=== PATIENT | female | born 1990 | race African-American/Black ===

== ENCOUNTER 2016-04-24 21:37 | Emergency (ER) | payer MEDICAID, OTHER ==
[2016-04-24] MEDS ORDERED: IBUPROFEN 600 MG TABLET PO ONE (23:48)
[2016-04-24] MEDS ORDERED: HYDROCODONE/ACETAMINOPHEN 5-325 MG 6 TAB/DSPK PO PRN (23:48)
--- NOTE | 2016-04-24 23:54 | ER Document Report ---
ED Extremity Problem, Lower - General Chief Complaint: Knee Injury Stated Complaint: FALL, LEG PAIN Time seen by provider: 23:49 Mode of Arrival: Stretcher Information source: Patient TRAVEL OUTSIDE OF THE [place] IN LAST 30 DAYS: No - HPI Patient complains to provider of: Injury, Pain, Swelling Location: Knee Occurred: Just prior to arrival Where: Work Onset/Duration: Sudden Quality of pain: Achy Severity: Moderate Pain Level: 4 Context: Fell Recent injury: Yes Associated symptoms: Unable to bear weight Exacerbated by: Movement, Walking Relieved by: Nothing Notes: Patient is a 25-year-old female who presents to the emergency room after fall from a ladder while at work, patient works at [employer], states she was approximately 4 rungs up on the ladder, when she slipped and fell causing her to land on the ground, her only complaint is right knee pain with painful ambulation, she denies a headache or head injury or loss of consciousness, no ankle pain, no low back pain, patient denies being - Related Data Allergies/Adverse Reactions: No Known Allergies Allergy (Verified 07/24/15 15:40) Past Medical History - General Information source: Patient - Social History Smoking Status: Former Smoker Family History: Reviewed & Not Pertinent Patient has suicidal ideation: No Patient has homicidal ideation: No Pulmonary Medical History: Reports: Hx Asthma Denies: Hx Tuberculosis Renal/ Medical History: Denies: Hx Peritoneal Dialysis Past Surgical History: Reports: Hx Section, Hx Hysterectomy - Immunizations Hx Diphtheria, Pertussis, Tetanus Vaccination: Yes Review of Systems - Review of Systems Constitutional: No symptoms reported EENT: No symptoms reported Cardiovascular: No symptoms reported Respiratory: No symptoms reported Gastrointestinal: No symptoms reported Genitourinary: No symptoms reported Female Genitourinary: No symptoms reported Musculoskeletal: See HPI Skin: No symptoms reported Hematologic/Lymphatic: No symptoms reported Neurological/Psychological: No symptoms reported -: Yes All other systems reviewed and negative Physical Exam - Vital signs Vitals: Temp Pulse Resp BP Pulse Ox 98.5 F 110 H 16 108/68 100 04/24/16 21:46 04/24/16 21:46 04/24/16 21:46 04/24/16 21:46 04/24/16 21:46 Interpretation: Normal - Notes Notes: - General General appearance: Appears well, Alert In distress: None - HEENT Head: Normocephalic, Atraumatic Eyes: Normal Conjunctiva: Normal Extraocular movements intact: Yes Eyelashes: Normal Pupils: PERRL - Respiratory Respiratory status: No respiratory distress - Cardiovascular Rhythm: Regular - Abdominal Inspection: Normal, obese - Back Back: Normal - Extremities General upper extremity: Normal inspection General lower extremity: Tenderness to palpate the right knee anteriorly over patella, on lateral joint line and in popliteal space, distal sensation and motor is intact, 2+ DP pulses - Neurological Neuro grossly intact: Yes Orientation: AAOx4 [place] Coma Scale Eye Opening: Spontaneous [place] Coma Scale Verbal: Oriented [place] Coma Scale Motor: Obeys Commands [place] Coma Scale Total: 15 - Psychological Associated symptoms: Normal affect, Normal mood - Skin Skin Temperature: Warm Skin Moisture: Dry Skin Color: Normal Course - Re-evaluation Re-evalutation: 04/24/16 23:53 Patient with no evidence of bony injury on imaging, physical exam findings consistent with likely soft tissue injury, patient was placed in a knee immobilizer, given instructions for follow-up with orthopedics and advised to return if symptoms worsen, patient acknowledges understanding and agreement with this plan - Vital Signs Vital signs: Temp Pulse Resp BP Pulse Ox 98.5 F 110 H 16 108/68 100 04/24/16 21:46 04/24/16 21:46 04/24/16 21:46 04/24/16 21:46 04/24/16 21:46 - Diagnostic Test Radiology reviewed: Image reviewed, Reports reviewed Procedures - Immobilization Right Knee Time completed: 23:54 Pre-Proc Neuro Vasc Exam: Normal Immobilizer type: Knee immobilizer Performed by: PCT Post-Proc Neuro Vasc Exam: Normal Alignment checked and good: Yes Discharge - Discharge Clinical Impression: Right knee injury Qualifiers: Encounter type: initial encounter Qualified Code(s): S89.91XA - Unspecified injury of right lower leg, initial encounter Condition: Stable Disposition: HOME, SELF-CARE Instructions: Use of Crutches ([facility]), Ice & Elevation ([facility]), Knee Immobilizing Splint ([facility]), Suspected Internal Knee Injury ([facility]), Oral Narcotic Medication ( [facility]), Sprained Knee ([facility]) Additional Instructions: Follow up with your primary care provider and an orthopedic surgeon in one to 2 days. Return to the emergency room immediately if symptoms worsen or any additional concerns. Ice and elevate the affected extremity. Limit weightbearing. Prescriptions: Ibuprofen [Motrin 600 Mg Tablet] 600 mg PO TID #30 tablet Forms: Return to Work Referrals: SANG KHAN MD [ACTIVE STAFF] - Follow up as needed
[2016-04-25 00:32] VITALS: BP 103/80
[2016-04-25] MEDS ORDERED: ONDANSETRON 4 MG TAB.RAPDIS SL ONE (01:17)
[2016-04-25] MEDS ORDERED: ONDANSETRON 4 MG TAB.RAPDIS ONE (01:24)
== END 2016-04-25 02:10 | disposition home or self-care (01) ==
LOC: ER 21:37
DX: S89.91XA Unspecified injury of right lower leg, initial encounter (principal); W11.XXXA Fall on and from ladder, initial encounter; Y93.89 Activity, other specified; Y92.511 Restaurant or cafe as the place of occurrence of the external cause; Y99.0 Civilian activity done for income or pay; M25.561 Pain in right knee; J45.909 Unspecified asthma, uncomplicated; Z87.891 Personal history of nicotine dependence
CPT/HCPCS: 99283; 73564; L1830; S0119

== ENCOUNTER 2016-04-29 17:52 | Emergency (ER) | payer OTHER ==
--- NOTE | 2016-04-29 18:07 | ER Document Report ---
ED Medical Screen (RME) - General Stated Complaint: LEG INJURY Time seen by provider: 18:06 Mode of Arrival: Ambulatory Information source: Patient Notes: 25-year-old female presents to ED for pain in her right knee after falling off of a ladder Monday. She states she was first follow-up with orthopedics but she cannot follow-up until she gets her claim number from work. She states the swelling and pain have increased. She has on a knee immobilizer and states she' s been keeping it elevated. She's been taken ibuprofen for the pain. I have greeted and performed a rapid initial assessment of this patient. A comprehensive ED assessment and evaluation of the patient, analysis of test results and completion of medical decision making process will be conducted by an additional ED providers. TRAVEL OUTSIDE OF THE [place] IN LAST 30 DAYS: No - Related Data Allergies/Adverse Reactions: No Known Allergies Allergy (Verified 04/29/16 18:06) Past Medical History Pulmonary Medical History: Reports: Hx Asthma Denies: Hx Tuberculosis Renal/ Medical History: Denies: Hx Peritoneal Dialysis Past Surgical History: Reports: Hx Section, Hx Hysterectomy - Immunizations Hx Diphtheria, Pertussis, Tetanus Vaccination: Yes Physical Exam - Vital signs Vitals: Temp Pulse Resp BP Pulse Ox 98.1 F 77 19 113/97 H 100 04/29/16 18:05 04/29/16 18:05 04/29/16 18:05 04/29/16 18:05 04/29/16 18:05 Course - Vital Signs Vital signs: Temp Pulse Resp BP Pulse Ox 98.1 F 77 19 113/97 H 100 04/29/16 18:05 04/29/16 18:05 04/29/16 18:05 04/29/16 18:05 04/29/16 18:05
[2016-04-29] MEDS ORDERED: IBUPROFEN 800 MG TABLET ONE ×2 (18:17→18:18)
[2016-04-29] MEDS ORDERED: HYDROCODONE/ACETAMINOPHEN 5-325 MG 6 TAB/DSPK PO PRN (20:19)
--- NOTE | 2016-04-29 20:20 | ER Document Report ---
HPI - HPI Patient complains to provider of: right knee pain Pain Level: 4 Context: Patient is a 25 year old emale that comes emergency department for chief complaint of ongoing right knee pain for the past 5 days, she states she was at work when she fell off a ladder and hit her knee on the ground (fell about 4 rungs), states she tried to go back to work today but was unable to do so, states she's been using crutches and wearing her knee immobilizer but was unable to make to orthopedics because she does not have her claim number from work yet. She has been taking ibuprofen. - REPRODUCTIVE Reproductive: DENIES: : - DERM Skin Color: Normal Past Medical History - General Information source: Patient - Social History Smoking Status: Never Smoker Chew tobacco use (# tins/day): No Frequency of alcohol use: None Drug Abuse: None Lives with: Family Family History: Reviewed & Not Pertinent Patient has suicidal ideation: No Patient has homicidal ideation: No Pulmonary Medical History: Reports: Hx Asthma Denies: Hx Tuberculosis Renal/ Medical History: Denies: Hx Peritoneal Dialysis Past Surgical History: Reports: Hx Section, Hx Hysterectomy - Immunizations Hx Diphtheria, Pertussis, Tetanus Vaccination: Yes Vertical Provider Document - CONSTITUTIONAL General Appearance: WD/WN, No Apparent Distress, Obese - INFECTION CONTROL TRAVEL OUTSIDE OF THE [place] IN LAST 30 DAYS: No - HEENT HEENT: Atraumatic, Normal ENT Exam, Normocephalic - RESPIRATORY Respiratory: Breath Sounds Normal, No Respiratory Distress O2 Sat by Pulse Oximetry: 100 - CARDIOVASCULAR Cardiovascular: Regular Rate, Regular Rhythm - GI/ABDOMEN Gastrointestinal: Abdomen Soft, Abdomen Non-Tender - BACK Back: Normal Inspection - MUSCULOSKELETAL/EXTREMETIES Musculoskeletal/Extremeties: Tender - Patient is very mildly tender with palpation over the right knee anteriorly, mainly inferiorly, questionable slight swelling, no erythema, unremarkable leg exam with no evidence of compartment syndrome, normal distal pulses, capillary refill, and sensation. Patient has slightly limited range of motion of the right knee due to discomfort. Normal hip exam. - NEURO Level of Consciousness: Awake, Alert, Appropriate Motor/Sensory: No Motor Deficit, No Sensory Deficit - DERM Integumentary: Warm, Dry, No Rash Course - Re-evaluation Re-evalutation: Patient had negative imaging after the fall, no evidence of compartment syndrome , no severe swelling, no erythema to the area, pain with range of motion and with palpation over the knee generally. Questionable small effusion. Will give patient additional days off work, [place] dose pack to take at night if needed, continue anti-inflammatories and ice, and follow-up and return precautions. Patient states understanding and agreement. - Vital Signs Vital signs: Temp Pulse Resp BP Pulse Ox 98.1 F 77 19 125/82 100 04/29/16 18:05 04/29/16 18:05 04/29/16 18:05 04/29/16 18:11 04/29/16 18:05 Discharge - Discharge Clinical Impression: Right knee pain Qualifiers: Chronicity: acute Qualified Code(s): M25.561 - Pain in right knee Condition: Stable Disposition: HOME, SELF-CARE Additional Instructions: There appears to be still some swelling in your knee, continued ice about 3-4 times a day, continue the anti-inflammatory, elevate her knee when possible, use the knee immobilizer and crutches when getting around. Follow-up with orthopedics referral for additional management. Return to the emergency department for any concerning or worsening symptoms including redness, swelling, severe pain, etc. Forms: Return to Work Referrals: SANG KHAN MD [ACTIVE STAFF] - 05/02/16
[2016-04-29 21:03] VITALS: BP 146/94
== END 2016-04-29 21:03 | disposition home or self-care (01) ==
LOC: ER 17:52
DX: M25.561 Pain in right knee (principal); W11.XXXA Fall on and from ladder, initial encounter; Y99.0 Civilian activity done for income or pay; Z90.710 Acquired absence of both cervix and uterus
CPT/HCPCS: 99283

== ENCOUNTER 2016-07-28 13:00 | Emergency (ER) | payer MEDICAID, OTHER ==
[2016-07-28 13:20] VITALS: BP 136/87
[2016-07-28] MEDS ORDERED: KETOROLAC TROMETHAMINE 60 MG/2 ML SDV IM ONE (14:07)
[2016-07-28] MEDS ORDERED: METOCLOPRAMIDE HCL INJ/PF 10 MG/2 ML SDV IM ONE (14:07)
--- NOTE | 2016-07-28 14:07 | ER Document Report ---
ED Headache - General Mode of Arrival: Ambulatory Information source: Patient TRAVEL OUTSIDE OF THE [place] IN LAST 30 DAYS: No - HPI Patient complains to provider of: Headache Onset: Other - see HPI note - General Chief Complaint: Headache Stated Complaint: RIGHT SIDE HEAD PAIN,NAUSEA,DIZZY Notes: Patient is a 25-year-old female presenting to the emergency department for a right-sided headache. Patient also has numbness to her right arm and right leg. Patient does not have any weakness to extremities, just numbness. Patient 's head is throbbing pain, and came on suddenly last night and has been constant since. Patient states she has history of migraines and was given Fioricet for them. Patient does not recall seeing a neurologist or having a recent CT scan. Patient states her last mammogram was about 6 months ago. Patient denies any injury to her head, blurry vision, or double vision or history of brain aneurysms in her family. Patient has a ride home. Patient states she is prediabetic. (NITHIN NORIEGA) - Related Data Allergies/Adverse Reactions: No Known Allergies Allergy (Verified 07/28/16 13:48) Past Medical History - General Information source: Patient - Social History Smoking Status: Never Smoker Family History: None Patient has suicidal ideation: No Patient has homicidal ideation: No Pulmonary Medical History: Reports: Hx Asthma Neurological Medical History: Reports: Hx Migraine Past Surgical History: Reports: Hx Section, Hx Hysterectomy - Immunizations Hx Diphtheria, Pertussis, Tetanus Vaccination: Yes Review of Systems - Review of Systems Constitutional: No symptoms reported EENT: No symptoms reported Cardiovascular: No symptoms reported Respiratory: No symptoms reported Gastrointestinal: No symptoms reported Genitourinary: No symptoms reported Female Genitourinary: No symptoms reported Musculoskeletal: No symptoms reported Skin: No symptoms reported Hematologic/Lymphatic: No symptoms reported Neurological/Psychological: See HPI, Headaches, Numbness -: Yes All other systems reviewed and negative Physical Exam - Vital signs Interpretation: Normal - General General appearance: Appears well, Alert In distress: Mild - HEENT Head: Normocephalic, Atraumatic Eyes: Normal Pupils: PERRL Mucous membranes: Moist - Respiratory Respiratory status: No respiratory distress Chest status: Nontender Breath sounds: Normal Chest palpation: Normal - Cardiovascular Rhythm: Regular Heart sounds: Normal auscultation Murmur: No - Abdominal Inspection: Normal Distension: No distension Bowel sounds: Normal Tenderness: Nontender Organomegaly: No organomegaly - Back Back: Normal, Nontender - Extremities General upper extremity: Normal inspection, Normal ROM, Normal strength General lower extremity: Normal inspection, Normal ROM, Normal strength - Neurological Neuro grossly intact: Yes Cognition: Normal Orientation: AAOx4 [place] Coma Scale Eye Opening: Spontaneous [place] Coma Scale Verbal: Oriented [place] Coma Scale Motor: Obeys Commands [place] Coma Scale Total: 15 Speech: Normal Motor strength normal: LUE, RUE, LLE, RLE Additional motor 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 She's had a long-standing history of headaches this is exactly same in character quality frequency and duration except that she has a little bit of tingling in her arm or leg. She denies any strokelike symptoms blurred vision double vision numbness tingling weakness. She denies any family history or history of aneurysm and herself. She has any nausea vomiting dull pain diarrhea she is well-appearing nontoxic in no acute distress HEENT examination is normal pupils equal reactive to light bilaterally for range of motion neck no meningeal signs. Equal bilateral reflexes symmetrical no motor or sensory abnormality ambulates without any difficulty with normal neurological examination. Acute CT of the head is negative for acute bleeds mass or midline shift. 07/28/16 15:[address] of the head headache is nearly resolved alert and oriented 3 no acute focal neurological deficits. We'll discharge follow-up with Dr. Mcbride stat urology primary care in 2-3 days and discussed reasons Fredia return sooner (ALEJANDRO EVERETT) - Vital Signs Vital signs: Temp Pulse Resp BP Pulse Ox 98.5 F 65 18 136/87 H 98 07/28/16 13:18 07/28/16 13:18 07/28/16 13:18 07/28/16 13:18 07/28/16 13:18 Discharge - Discharge Clinical Impression: acute cephalgia Condition: Stable Disposition: HOME, SELF-CARE Additional Instructions: Headache The physician does not feel that the headache you are experiencing has a serious underlying cause. Most headaches are due to emotional stress, with resultant muscle tension (tension headache). Occasionally, headaches are secondary to changes in the blood vessels of the scalp (vascular headache and migraine headache). Sometimes, a headache is the first symptom of another developing illness, such as a viral infection. You have no evidence of stroke, bleeding, meningitis, or other serious cause of your headache. The treatment of headaches varies with the severity and cause of the pain. Not all headaches need pain shots. In fact, there is evidence that using narcotics for headaches may make them worse in the long run. The physician will determine the therapy that's in your best interest. If you develop a fever, if the headache is different from any you've previously experienced, or if the headache progressively worsens, then call your physician at once or go to the emergency room. Referrals: ARABELLA CARROLL MD [ACTIVE STAFF] - Follow up in 3-5 days (Call for an appointment to be seen in 3-5 days return for increasing worsening or new symptoms) Scribe Attestation: 07/28/16 15:12 I personally performed the services described in the documentation, reviewed the documentation recorded by the scribe in my presence and it accurately incompletely records my words and actions (ALEJANDRO EVERETT) Scribe Documentation - Scribe Written by Boo:: Nithin Noriega 07/28/16 15:10 acting as scribe for :: Todd
[2016-07-28] MEDS ORDERED: DIPHENHYDRAMINE HCL 50 MG/ML VIAL IM ONE (14:08)
== END 2016-07-28 15:48 | disposition home or self-care (01) ==
LOC: ER 13:00
DX: R51 Headache (principal); R11.0 Nausea; R42 Dizziness and giddiness
CPT/HCPCS: 99284; 96372; 70450; J1200; J1885; J2765

== ENCOUNTER 2017-04-27 18:36 | Emergency (ER) | payer MEDICAID ==
[2017-04-27] MEDS ORDERED: ASPIRIN 81 MG TABLET, CHEWABLE PO ONE (20:27)
--- NOTE | 2017-04-27 20:29 | ER Document Report ---
ED Medical Screen (RME) - General Chief Complaint: Chest Pain Stated Complaint: LEG PAIN Time Seen by Provider: 04/27/17 20:26 Mode of Arrival: Ambulatory Information source: Patient Notes: Patient presents complaining of right lower extremity pain that she points to her right hip. Patient states that whenever she stands or walks she feels as though her leg is going to give out. Patient additionally reports midsternal chest pain for the past 2-3 days that has been constant. Patient does report shortness of breath. Patient denies any cough. Patient does report nausea but denies any vomiting. hx: Asthma, hysterectomy, I have greeted and performed a rapid initial assessment of this patient. A comprehensive ED assessment and evaluation of the patient, analysis of test results and completion of the medical decision making process will be conducted by additional ED providers. TRAVEL OUTSIDE OF THE [place] IN LAST 30 DAYS: No - Related Data Allergies/Adverse Reactions: No Known Allergies Allergy (Verified 07/28/16 13:48) Past Medical History - Social History Frequency of alcohol use: None Drug Abuse: None Pulmonary Medical History: Reports: Hx Asthma Denies: Hx Tuberculosis Neurological Medical History: Reports: Hx Migraine Renal/ Medical History: Denies: Hx Peritoneal Dialysis Past Surgical History: Reports: Hx Section, Hx Hysterectomy - Immunizations Hx Diphtheria, Pertussis, Tetanus Vaccination: Yes Physical Exam - Vital signs Vitals: Temp Pulse Resp BP Pulse Ox 98.4 F 79 16 120/85 100 04/27/17 20:11 04/27/17 20:11 04/27/17 20:11 04/27/17 20:11 04/27/17 20:11 - Respiratory Respiratory status: No respiratory distress Chest status: Tender Breath sounds: Normal Chest palpation: Tender Course - Vital Signs Vital signs: Temp Pulse Resp BP Pulse Ox 98.4 F 79 16 120/85 100 04/27/17 20:11 04/27/17 20:11 04/27/17 20:11 04/27/17 20:11 04/27/17 20:11
--- NOTE | 2017-04-27 21:38 | RADIOLOGY REPORT (SQ) ---
EXAM DESCRIPTION: CHEST PA/LAT COMPLETED DATE/TIME: 04/27/2017 8:51 pm REASON FOR STUDY: cp COMPARISON: 07/24/2015 EXAM PARAMETERS: NUMBER OF VIEWS: two views TECHNIQUE: Digital Frontal and Lateral radiographic views of the chest acquired. RADIATION DOSE: NA LIMITATIONS: none FINDINGS: LUNGS AND PLEURA: No opacities, masses or pneumothorax. No pleural effusion. MEDIASTINUM AND HILAR STRUCTURES: No masses or contour abnormalities. HEART AND VASCULAR STRUCTURES: Heart normal size. No evidence for failure. BONES: No acute findings. HARDWARE: None in the chest. OTHER: No other significant finding. IMPRESSION: No acute findings. TECHNICAL DOCUMENTATION: JOB ID: [id number] [id number] 2010 [employer]- All Rights Reserved
--- NOTE | 2017-04-27 21:40 | RADIOLOGY REPORT (SQ) ---
EXAM DESCRIPTION: HIP RIGHT AP/LATERAL COMPLETED DATE/TIME: 04/27/2017 8:51 pm REASON FOR STUDY: r hip pain COMPARISON: None. NUMBER OF VIEWS: Two views. TECHNIQUE: AP pelvis and additional frog-leg view of the right hip. LIMITATIONS: None. FINDINGS: MINERALIZATION: Normal. RIGHT HIP: No fracture or dislocation. No worrisome bone lesions. LEFT HIP: No fracture or dislocation. No worrisome bone lesions. PUBIS AND ISCHIUM: No fracture. PELVIS: No fracture. SACRUM: No fracture or dislocation. No worrisome bone lesions. LOWER LUMBAR SPINE: No fracture or dislocation. No worrisome bone lesions. No significant disc disea se. SOFT TISSUES: No findings. OTHER: No other significant finding. IMPRESSION: NO RADIOGRAPHIC EVIDENCE OF ACUTE INJURY. TECHNICAL DOCUMENTATION: JOB ID: [id number] 2010 [employer]- All Rights Reserved
--- NOTE | 2017-04-27 22:21 | ER Document Report ---
ED Cardiac - General Mode of Arrival: Ambulatory Information source: Patient TRAVEL OUTSIDE OF THE [place] IN LAST 30 DAYS: No - HPI Patient complains to provider of: Chest pain, Shortness of breath Quality of pain: Constant, Sharp, Stabbing Associated symptoms: Other - see notes above <FCO ZHANG - Last Filed: 04/28/17 03:54> <ELOISA CORTÉS - Last Filed: 04/28/17 03:57> - General Chief Complaint: Chest Pain Stated Complaint: LEG PAIN Time Seen by Provider: 04/27/17 20:26 Notes: 26 year old female with history of asthma presents to the ED complaining of constant stabbing chest pain that started 2-3 days ago. Patient reports that she feels short of breath unlike her normal asthma, and her inhaler has not helped. Patient additionally complains of right hip, leg and foot pain that started today. Patient is experiencing weakness to her right lower extremity and states that it 'gives out' after standing or walking on it. Patient also reports right foot numbness. Denies cough, fever, wheezing, injury to her back, and urinary or bowel incontinence. (FCO ZHANG) - Related Data Allergies/Adverse Reactions: No Known Allergies Allergy (Verified 07/28/16 13:48) Past Medical History - General Information source: Patient - Social History Smoking Status: Never Smoker Frequency of alcohol use: None Drug Abuse: None Family History: None Patient has suicidal ideation: No Patient has homicidal ideation: No Pulmonary Medical History: Reports: Hx Asthma Denies: Hx Tuberculosis Neurological Medical History: Reports: Hx Migraine Renal/ Medical History: Denies: Hx Peritoneal Dialysis Past Surgical History: Reports: Hx Section, Hx Hysterectomy - Immunizations Hx Diphtheria, Pertussis, Tetanus Vaccination: Yes <FCO ZHANG - Last Filed: 04/28/17 03:54> Review of Systems - Review of Systems Constitutional: No symptoms reported. denies: Fever EENT: No symptoms reported Cardiovascular: See HPI, Chest pain Respiratory: See HPI, Short of breath. denies: Cough, Wheezing Gastrointestinal: No symptoms reported. denies: Fecal incontinence Genitourinary: No symptoms reported. denies: Incontinence Female Genitourinary: No symptoms reported Musculoskeletal: See HPI, Other - right hip, leg, and foot pain Skin: No symptoms reported Hematologic/Lymphatic: No symptoms reported Neurological/Psychological: See HPI, Weakness - right lower extremity, Numbness - right foot -: Yes All other systems reviewed and negative <FCO ZHANG - Last Filed: 04/28/17 03:54> Physical Exam <FCO ZHANG - Last Filed: 04/28/17 03:54> <ELOISA CORTÉS - Last Filed: 04/28/17 03:57> - Vital signs Vitals: Temp Pulse Resp BP Pulse Ox 98.4 F 79 16 120/85 100 04/27/17 20:11 04/27/17 20:11 04/27/17 20:11 04/27/17 20:11 04/27/17 20:11 - Notes Notes: GENERAL: Alert, interacts well. No acute distress. HEAD: Normocephalic, atraumatic. EYES: Pupils equal, round, and reactive to light. Extraocular movements intact. ENT: Oral mucosa moist, tongue midline. NECK: Full range of motion. Supple. Trachea midline. LUNGS: Clear to auscultation bilaterally, no wheezes, rales, or rhonchi. No respiratory distress. HEART: Tachycardic with regular rhythm. No murmurs, gallops, or rubs. BACK: No midline bony tenderness to palpation. CHEST: Reproducible tenderness to palpation of the sternum. ABDOMEN: Soft, non-tender. Non-distended. Bowel sounds present in all 4 quadrants. EXTREMITIES: Moves all 4 extremities spontaneously. No edema, radial and dorsalis pedis pulses 2/4 bilaterally. No cyanosis. Negative right SLR. NEUROLOGICAL: Alert and oriented x3. Normal speech. Normal dorsi and plantar flexion of bilateral feet. 5/5 great toe raise strength. No saddle anesthesia. PSYCH: Normal affect, normal mood. SKIN: Warm, dry, normal turgor. No rashes or lesions noted. (FCO ZHANG) Course - Laboratory Result Diagrams: 04/27/17 22:59 04/27/17 22:59 <FCO ZHANG - Last Filed: 04/28/17 03:54> - Laboratory Result Diagrams: 04/27/17 22:59 04/27/17 22:59 <ELOISA CORTÉS - Last Filed: 04/28/17 03:57> - Re-evaluation Re-evalutation: 04/28/17 00:07 CBC shows mild anemia with hemoglobin 11.3, d-dimer unremarkable 0.27, chemistries unremarkable, cardiac enzymes negative, chest x-ray unremarkable, hip and pelvis x-ray negative. Straight leg raising test negative although she does have some suspicion for possible sciatica. No evidence of cauda equina syndrome, no red flag symptoms. Physical examination consistent with costochondritis. Patient will be discharged home on NSAIDs and steroids which will benefit both the costochondritis and the sciatica. Discharged home. ( ELOISA CORTÉS) - Vital Signs Vital signs: Temp Pulse Resp BP Pulse Ox 98.3 F 85 14 130/80 H 99 04/28/17 00:00 04/28/17 00:00 04/28/17 00:00 04/28/17 00:00 04/28/17 00:00 - Laboratory Laboratory results interpreted by me: 04/27/17 04/27/17 22:59 22:59 Hgb 11.3 L Hct 34.0 L Creatine Kinase 182 H - EKG Interpretation by Me Additional EKG results interpreted by me: 04/28/17 00:07 EKG shows sinus rhythm at a rate of 83, normal axis, normal intervals, no ST segment elevations or depressions, isolated T-wave inversions in lead III per my interpretation. (ELOISA CORTÉS) Discharge <FCO ZHANG - Last Filed: 04/28/17 03:54> <ELOISA CORTÉS - Last Filed: 04/28/17 03:57> - Discharge Clinical Impression: Costochondritis, Pre-hypertension, Right sided sciatica Condition: Stable Disposition: HOME, SELF-CARE Additional Instructions: Costochondritis Your chest pain is coming from the rib cartilages in the chest wall. This is often caused by subtle straining of the ribs near the breastbone. The strain can occur from a mild injury, coughing or sneezing with a "cold," vigorous vomiting, or even from rib compression while sleeping. Often the pain doesn't begin until a couple of days after the strain. Persons with arthritis are especially prone to this type of pain, due to inflammation of the cartilage joints near the breast bone. But often, there is no clear reason why it happens. Rest from strenuous physical activity. This kind of chest pain is usually made worse by movement of the chest. Depending on the symptoms, we may prescribe medicine for pain and inflammation. Apply gentle warmth to the painful area for 15 minutes every hour or two. You should call contact the doctor immediately if things change. Further evaluation is needed if you develop a fever or cough, if the nature of the pain changes, or if you become short of breath. Sciatica Your symptoms suggest "sciatica." The pain of sciatica typically radiates down the leg. Numbness in the foot or calf may also occur. Sciatica is caused by irritation of the sciatic nerve or its branches. The irritation can be due to a herniated disk in the spine, swelling and inflammation in the muscles surrounding the sciatic nerve, or direct injury of the nerve itself. Most cases of sciatica will resolve with medical treatment. Bed rest is usually recommended initially. Surgery is only necessary when the condition will not improve with rest and antiinflammatory medication. Re-examination is necessary if you develop increasing numbness, localized weakness in the foot or ankle, or if the pain does not respond to rest. Prescriptions: Ibuprofen 800 mg PO TIDP #20 tablet Prednisone [Deltasone 20 mg Tablet] 3 tab PO DAILY 5 Days tablet Forms: Elevated Blood Pressure, Return to Work Referrals: ARNALDO RIVERO MD [Primary Care Provider] - Follow up in 1 week Scribe Attestation: 04/28/17 03:57 I personally performed the services described in the documentation, reviewed and edited the documentation which was dictated to the scribe in my presence, and it accurately records my words and actions. (ELOISA CORTÉS) Scribe Documentation - Scribe Written by Boo:: Boo Aguiar, 04/27/2017 2240 acting as scribe for :: Lety <FCO ZHANG - Last Filed: 04/28/17 03:54>
[2017-04-27 23:09] LABS: ABSOLUTE BASOPHILS # (AUTO) 0.1 10^3/uL (0.0-0.2); ABSOLUTE EOSINOPHILS # (AUTO) 0.2 10^3/uL (0.0-0.6); ABSOLUTE LYMPHOCYTES (AUTO) 3.8 10^3/uL (0.5-4.7); ABSOLUTE MONOCYTES (AUTO) 0.9 10^3/uL (0.1-1.4); ABSOLUTE NEUT (AUTO) 4.4 10^3/uL (1.7-8.2); BASOPHILS % (AUTO) 1.4 % (0-2); EOSINOPHILS % (AUTO) 2.2 % (0-6); HEMOGLOBIN 11.3 g/dL (12.0-15.5); LYMPHOCYTES % (AUTO) 40.2 % (13-45); MEAN CORPUSCULAR HEMOGLOBIN 27.6 pg (27.0-33.4); MEAN CORPUSCULAR HGB CONC 33.2 g/dL (32.0-36.0); MEAN CORPUSCULAR VOLUME 83 fl (80-97); MONOCYTES % (AUTO) 9.6 % (3-13); PLATELET COUNT 412 10^3/uL (150-450); RED BLOOD COUNT 4.08 10^6/uL (3.72-5.28); RED CELL DISTRIBUTION WIDTH 12.8 % (11.5-14.0); SEGMENTED NEUTROPHILS % (AUTO) 46.6 % (42-78); TOTAL CELLS COUNTED % (AUTO) 100 %; WHITE BLOOD COUNT 9.5 10^3/uL (4.0-10.5)
[2017-04-27 23:32] LABS: ALANINE AMINOTRANSFERASE 26 U/L (9-52); ALBUMIN 4.1 g/dL (3.5-5.0); ALKALINE PHOSPHATASE 73 U/L (38-126); ANION GAP 9 (5-19); ASPARTATE AMINO TRANSFERASE 16 U/L (14-36); BILIRUBIN,DIRECT 0.2 mg/dL (0.0-0.4); BILIRUBIN,TOTAL 0.3 mg/dL (0.2-1.3); BLOOD UREA NITROGEN 8 mg/dL (7-20); CALCIUM 9.7 mg/dL (8.4-10.2); CARBON DIOXIDE 27 mmol/L (22-30); CHLORIDE 102 mmol/L (98-107); CREATINE KINASE 182 U/L (30-135); GLUCOSE 108 mg/dL (75-110); POTASSIUM 4.2 mmol/L (3.6-5.0); SODIUM 137.5 mmol/L (137-145)
[2017-04-27 23:39] LABS: CREATINE KINASE MB 0.39 ng/mL (<4.55); TROPONIN I 0.013 ng/mL
[2017-04-28] MEDS ORDERED: KETOROLAC TROMETHAMINE 60 MG/2 ML SDV IM ONE (00:09)
[2017-04-28 00:30] VITALS: BP 130/80
--- NOTE | 2017-04-28 07:42 | EKG REPORT ---
SEVERITY:- BORDERLINE ECG - SINUS RHYTHM BORDERLINE T ABNORMALITIES, ANTERIOR LEADS : Confirmed by: Cristy Corona MD 28-Apr-2017 07:40:50
== END 2017-04-28 00:30 | disposition home or self-care (01) ==
LOC: ER 18:36
DX: M94.0 Chondrocostal junction syndrome [Tietze] (principal); R03.0 Elevated blood-pressure reading, without diagnosis of hypertension; M54.31 Sciatica, right side; R53.1 Weakness; R06.02 Shortness of breath; R20.0 Anesthesia of skin
CPT/HCPCS: 93005; 99285; 96372; 36415; 82553; 82550; 85025; 80053; 84484; 85379; 71046; 73502; 93010; J1885

== ENCOUNTER 2017-05-04 13:29 | Emergency (ER) | payer MEDICAID ==
[2017-05-04] MEDS ORDERED: ASPIRIN 81 MG TABLET, CHEWABLE PO ONE (14:25)
[2017-05-04] MEDS ORDERED: HYDROXYZINE PAMOATE 50 MG CAPSULE PO ONE (14:25)
[2017-05-04] MEDS ORDERED: NORMAL SALINE 1000 ML 1,000 ML IV ONE (14:25)
--- NOTE | 2017-05-04 14:29 | ER Document Report ---
ED General - General Mode of Arrival: Ambulatory Information source: Patient TRAVEL OUTSIDE OF THE [place] IN LAST 30 DAYS: No - HPI Onset: Last week Onset/Duration: Persistent Quality of pain: Sharp, Other - Pulling Pain Level: 4 Associated symptoms: Chest pain, Shortness of breath. denies: Nonproductive cough, Productive cough, Fever, Headache, Nausea, Vomiting Exacerbated by: Denies Relieved by: Denies Similar symptoms previously: No Recently seen / treated by doctor: Yes <JENNI DUMAS - Last Filed: 05/04/17 20:48> <MORRO PAULSON - Last Filed: 05/04/17 22:03> - General Chief Complaint: Shortness Of Breath Stated Complaint: WEAKNESS, DIFFICULTY BREATHING Time Seen by Provider: 05/04/17 14:06 Notes: Patient presents with a one-week history of anterior chest pain, shortness of breath and feeling weak. Yesterday she states she started to have some dizziness. Patient denies any cough, cold symptoms, nausea vomiting or diarrhea. Patient denies any urinary symptoms. Patient states she has a maternal family history of congestive heart failure and cardiomyopathy which has her concerned about her symptoms today. 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 denies: Fever, Recent illness EENT: No symptoms reported Cardiovascular: Chest pain, Dizziness. denies: Lightheaded Respiratory: Short of breath. denies: Cough, Hemoptysis, Wheezing Gastrointestinal: No symptoms reported. denies: Abdominal pain, Nausea, Vomiting Genitourinary: No symptoms reported Female Genitourinary: No symptoms reported Musculoskeletal: No symptoms reported. denies: Back pain Skin: No symptoms reported Hematologic/Lymphatic: No symptoms reported Neurological/Psychological: No symptoms reported. denies: Headaches <JENNI DUMAS - Last Filed: 05/04/17 20:48> Physical Exam - General General appearance: Appears well, Alert, Anxious In distress: None - HEENT Head: Normocephalic, Atraumatic Eyes: Normal Conjunctiva: Normal Extraocular movements intact: Yes Ears: Normal External canal: Normal Nasal: Normal Mouth/Lips: Normal Mucous membranes: Normal Pharynx: Normal. No: Erythema, Exudate, Tonsillar hypertrophy Neck: Normal, Supple. No: Lymphadenopathy - Respiratory Respiratory status: No respiratory distress Chest status: Tender Breath sounds: Normal Chest palpation: Tender. No: Subcutaneous emphysema, Sucking chest wound - Cardiovascular Rhythm: Regular Heart sounds: S1 appreciated, S2 appreciated Murmur: No - Abdominal Inspection: Morbidly Obese Distension: No distension Bowel sounds: Normal Tenderness: Nontender - Back Back: Normal, Nontender. No: CVA tenderness, Vertebra tenderness - Extremities General upper extremity: Normal inspection, Normal ROM General lower extremity: Normal inspection, Nontender, Normal ROM - Neurological Neuro grossly intact: Yes Cognition: Normal [place] Coma Scale Eye Opening: Spontaneous [place] Coma Scale Verbal: Oriented [place] Coma Scale Motor: Obeys Commands [place] Coma Scale Total: 15 - Psychological Associated symptoms: Anxious - Skin Skin Temperature: Warm Skin Moisture: Dry Skin Color: Normal <JENNI DUMAS - Last Filed: 05/04/17 20:48> - Vital signs Vitals: Temp Pulse Resp BP Pulse Ox 98.5 F 78 16 101/82 100 05/04/17 13:53 05/04/17 13:53 05/04/17 13:53 05/04/17 13:53 05/04/17 13:53 Course - Laboratory Result Diagrams: 05/04/17 17:27 05/04/17 16:50 - Diagnostic Test Radiology reviewed: Reports reviewed - EKG Interpretation by Me EKG shows normal: Sinus rhythm When compared to previous EKG there are: Changes noted - Patient with increase QTC to 47 today, patient with T-wave inversion in V 2,3,4 <JENNI DUMAS - Last Filed: 05/04/17 20:48> - Laboratory Result Diagrams: 05/04/17 17:27 05/04/17 16:50 - Diagnostic Test Radiology reviewed: Reports reviewed <MORRO PAULSON - Last Filed: 05/04/17 22:03> - Re-evaluation Re-evalutation: 05/04/17 17:42 Patient states that she feels as though her chest pain has worsened. Patient continues with reproducible anterior chest wall tenderness with palpation. No dyspnea at this time. Respirations unlabored. Repeat EKG ordered. 05/04/17 18:[address] Hernandes regarding patient presentation, reviewed patient's EKG as well as diagnostic test results. Dr. Hernandes turned about T-wave inversion in V2, 3 and 4 which is new as compared to her EKG performed last week. Also concerned about increasing prolongation of QTC. Recommends consultation with cardiology. Consulted with Dr. Damon regarding patient presentation, discussed her diagnostic evaluation, presentation, history and EKG findings. Recommends obtaining CTA and repeating a troponin at 8 PM if tests are negative patient can be discharged home to follow-up in the office tomorrow for further evaluation with him. 05/04/17 20:23 Dr. Hernandes inserted right external jugular IV. Line flushed without difficulty. CT states that they cannot use patient's left AC and will not use an EJ for CTA. Dr Hernandes spoke with formula technician. Order changed to VQ study. 05/04/17 20:27 sterile supervisor recommends calling radiology so they may call in nuclear med refrigeration technician for VQ study. 05/04/17 20:48 Bedside report and handout given to Saida Paulson (JENNI DUMAS) 05/04/17 22:02 VQ scan normal, repeat troponin negative, patient was given results of VQ scan and troponin and given a written report of VQ scan and all labs to follow-up with the automotive electrician helper tomorrow. All IV access will be DC'd and patient will be discharged home with prescription of Prilosec and Carafate. Patient is aware of discharge plans. (MORRO PAULSON) - Vital Signs Vital signs: Temp Pulse Resp BP Pulse Ox 98.1 F 79 18 114/66 99 05/04/17 17:42 05/04/17 17:42 05/04/17 17:42 05/04/17 17:42 05/04/17 17:42 - Laboratory Laboratory results interpreted by me: 05/04/17 05/04/17 05/04/17 15:30 16:50 17:27 Hgb 11.3 L Hct 33.0 L BUN 6 L Creatine Kinase 146 H Ur Leukocyte Esterase TRACE H Discharge <JENNI DUMAS - Last Filed: 05/04/17 20:48> <MORRO PAULSON - Last Filed: 05/04/17 22:03> - Discharge Clinical Impression: Chest pain Qualifiers: Chest pain type: unspecified Qualified Code(s): R07.9 - Chest pain, unspecified GERD (gastroesophageal reflux disease) Qualifiers: Esophagitis presence: without esophagitis Qualified Code(s): K21.9 - Gastro- esophageal reflux disease without esophagitis Instructions: Chest Pain of Unclear Cause ([facility]), Reflux Disease (GERD) ([facility]) Additional Instructions: Return immediately for any new or worsening symptoms Followup with your primary care provider, call tomorrow to make a followup appointment Follow-up with Dr. Damon in his office tomorrow. Call their office at 8 AM for an appointment time. Let the office staff know that he wanted to see you in the office tomorrow for examination Prescriptions: Omeprazole Magnesium [Prilosec Otc] 20 mg PO DAILY #15 tablet. Sucralfate [Carafate 1 gm Tablet] 1 gm PO QID #40 tablet Forms: Return to Work Referrals: KAROLINE DAMON MD [ACTIVE STAFF] - Follow up tomorrow WILBER RICKETTS DO [NO LOCAL MD] - 05/08/17
--- NOTE | 2017-05-04 15:34 | RADIOLOGY REPORT (SQ) ---
EXAM DESCRIPTION: CHEST PA/LAT COMPLETED DATE/TIME: 05/04/2017 3:24 pm REASON FOR STUDY: cp COMPARISON: 04/27/2017. EXAM PARAMETERS: NUMBER OF VIEWS: two views TECHNIQUE: Digital Frontal and Lateral radiographic views of the chest acquired. RADIATION DOSE: NA LIMITATIONS: none FINDINGS: LUNGS AND PLEURA: No opacities, masses or pneumothorax. No pleural effusion. MEDIASTINUM AND HILAR STRUCTURES: No masses or contour abnormalities. HEART AND VASCULAR STRUCTURES: Heart normal size. No evidence for failure. BONES: No acute findings. HARDWARE: None in the chest. OTHER: No other significant finding. IMPRESSION: NO SIGNIFICANT RADIOGRAPHIC FINDING IN THE CHEST. TECHNICAL DOCUMENTATION: JOB ID: [id number] [employer]- All Rights Reserved
[2017-05-04 15:46] LABS: APPEARANCE,URINE SLIGHTLY-CLOUDY; BILIRUBIN,URINE NEGATIVE (NEGATIVE); COLOR,URINE YELLOW; GLUCOSE, URINE NEGATIVE (NEGATIVE); KETONES,URINE NEGATIVE (NEGATIVE); LEUKOCYTE ESTERASE,URINE TRACE (NEGATIVE); NITRITE,URINE NEGATIVE (NEGATIVE); PROTEIN,URINE NEGATIVE (NEGATIVE); URINE SPECIFIC GRAVITY 1.025; UROBILINOGEN,URINE NEGATIVE mg/dL (<2.0)
[2017-05-04 17:18] LABS: ALANINE AMINOTRANSFERASE 25 U/L (9-52); ALBUMIN 3.9 g/dL (3.5-5.0); ALKALINE PHOSPHATASE 62 U/L (38-126); ANION GAP 9 (5-19); ASPARTATE AMINO TRANSFERASE 16 U/L (14-36); BILIRUBIN,DIRECT 0.3 mg/dL (0.0-0.4); BILIRUBIN,TOTAL 0.3 mg/dL (0.2-1.3); BLOOD UREA NITROGEN 6 mg/dL (7-20); CALCIUM 9.7 mg/dL (8.4-10.2); CARBON DIOXIDE 23 mmol/L (22-30); CHLORIDE 107 mmol/L (98-107); CREATINE KINASE 146 U/L (30-135); GLUCOSE 79 mg/dL (75-110); LIPASE 49.3 U/L (23-300); MAGNESIUM 1.9 mg/dL (1.6-2.3); POTASSIUM 4.1 mmol/L (3.6-5.0); SODIUM 139.1 mmol/L (137-145); TOTAL PROTEIN 6.9 g/dL (6.3-8.2)
[2017-05-04 17:44] VITALS: BP 114/66
[2017-05-04 17:51] LABS: ABSOLUTE BASOPHILS # (AUTO) 0.1 10^3/uL (0.0-0.2); ABSOLUTE EOSINOPHILS # (AUTO) 0.1 10^3/uL (0.0-0.6); ABSOLUTE LYMPHOCYTES (AUTO) 3.2 10^3/uL (0.5-4.7); ABSOLUTE MONOCYTES (AUTO) 0.7 10^3/uL (0.1-1.4); ABSOLUTE NEUT (AUTO) 3.3 10^3/uL (1.7-8.2); BASOPHILS % (AUTO) 0.8 % (0-2); HEMOGLOBIN 11.3 g/dL (12.0-15.5); LYMPHOCYTES % (AUTO) 43.4 % (13-45); MEAN CORPUSCULAR HEMOGLOBIN 28.4 pg (27.0-33.4); MEAN CORPUSCULAR HGB CONC 34.1 g/dL (32.0-36.0); MEAN CORPUSCULAR VOLUME 83 fl (80-97); MONOCYTES % (AUTO) 9.8 % (3-13); PLATELET COUNT 415 10^3/uL (150-450); RED BLOOD COUNT 3.97 10^6/uL (3.72-5.28); TOTAL CELLS COUNTED % (AUTO) 100 %; WHITE BLOOD COUNT 7.4 10^3/uL (4.0-10.5)
[2017-05-04 18:27] LABS: CREATINE KINASE MB < 0.22 ng/mL (<4.55); TROPONIN I < 0.012 ng/mL
--- NOTE | 2017-05-04 18:55 | EKG REPORT ---
SEVERITY:- BORDERLINE ECG - SINUS RHYTHM BORDERLINE T ABNORMALITIES, DIFFUSE LEADS BORDERLINE PROLONGED QT INTERVAL : Confirmed by: Shorty Chiu MD 04-May-2017 18:55:11
--- NOTE | 2017-05-04 18:57 | EKG REPORT ---
SEVERITY:- BORDERLINE ECG - SINUS RHYTHM BORDERLINE T ABNORMALITIES, DIFFUSE LEADS BORDERLINE PROLONGED QT INTERVAL : Confirmed by: Shorty Chiu MD 04-May-2017 18:55:35
[2017-05-04] MEDS ORDERED: HYDROCODONE/ACETAMINOPHEN 5-325 MG TABLET PO ONE (20:49)
--- NOTE | 2017-05-04 21:29 | RADIOLOGY REPORT (SQ) ---
EXAM DESCRIPTION: NM LUNG PERFUSION SCAN COMPLETED DATE/TIME: 05/04/2017 9:22 pm REASON FOR STUDY: cp COMPARISON: Chest x-ray dated 05/04/2017. RADIONUCLIDE AND DOSE: 5.15 millicuries TC-99m MAA The route of agent administration: Intravenous TECHNIQUE: Eight views of the lungs acquired following injection of MAA. LIMITATIONS: None. FINDINGS: PERFUSION: Perfusion images with normal homogenous activity and no wedge-shaped or segment al defects. OTHER: No other significant finding. IMPRESSION: NORMAL PERFUSION LUNG SCAN. TECHNICAL DOCUMENTATION: JOB ID: [id number] [email or web address]- All Rights Reserved
== END 2017-05-04 22:30 | disposition home or self-care (01) ==
LOC: ER 13:29
DX: R07.9 Chest pain, unspecified (principal); K21.9 Gastro-esophageal reflux disease without esophagitis; R06.02 Shortness of breath; R53.1 Weakness; Z90.710 Acquired absence of both cervix and uterus
CPT/HCPCS: 93005; 99285; 96360; 36415; 82553; 82550; 83690; 83735; 85025; 80053; 81001; 84484; 85379; 71046; 78580; 93010; A9540; J3490; J7030; Q9969

== ENCOUNTER 2017-05-19 18:18 | Emergency (ER) | payer MEDICAID ==
[2017-05-19] MEDS ORDERED: DEXAMETHASONE 4 MG TABLET PO ONE (21:21)
[2017-05-19] MEDS ORDERED: LIDOCAINE 5% (700 MG) TRANSDERMAL ADH..PATCH TP ONE (21:21)
--- NOTE | 2017-05-19 21:24 | ER Document Report ---
ED General - General Chief Complaint: Neck Problem Stated Complaint: NECK ISSUE Time Seen by Provider: 05/19/17 21:01 Notes: Patient is a 26-year-old female presents with 1 week of sore throat 2-3 days of a "lump" on her low neck. Patient describes the area as an area of swelling with a dull, constant, aching pain. She notes that touching the area or moving worsens the pain. She has not tried anything to improve the pain. She denies any history of similar symptoms in the past. She has not seen her primary doctor regarding today's concerns. She denies any associated fever, vomiting, focal weakness, numbness, headache or altered mental status. TRAVEL OUTSIDE OF THE [place] IN LAST 30 DAYS: No - Related Data Allergies/Adverse Reactions: No Known Allergies Allergy (Verified 05/19/17 18:20) Past Medical History - General Information source: Patient - Social History Smoking Status: Never Smoker Chew tobacco use (# tins/day): No Frequency of alcohol use: None Drug Abuse: None Lives with: Family Family History: Reviewed & Not Pertinent Patient has suicidal ideation: No Patient has homicidal ideation: No Pulmonary Medical History: Reports: Hx Asthma, Hx Bronchitis Denies: Hx Tuberculosis Neurological Medical History: Reports: Hx Migraine Renal/ Medical History: Denies: Hx Peritoneal Dialysis Past Surgical History: Reports: Hx Section, Hx Hysterectomy - Immunizations Hx Diphtheria, Pertussis, Tetanus Vaccination: Yes Review of Systems - Review of Systems Notes: Constitutional: Negative for fever. HENT: Positive for sore throat. Eyes: Negative for visual changes. Cardiovascular: Negative for chest pain. Respiratory: Negative for shortness of breath. Gastrointestinal: Negative for abdominal pain, vomiting or diarrhea. Genitourinary: Negative for dysuria. Musculoskeletal: Positive for neck pain Skin: Negative for rash. Neurological: Negative for headaches, weakness or numbness. 10 point ROS negative except as marked above and in HPI. Physical Exam - Vital signs Vitals: Temp Pulse BP Pulse Ox 98.9 F 100 111/70 98 05/19/17 18:35 05/19/17 18:35 05/19/17 18:35 05/19/17 18:35 Interpretation: Normal Notes: PHYSICAL EXAMINATION: GENERAL: Well-appearing, well-nourished and in no acute distress. HEAD: Atraumatic, normocephalic. EYES: Pupils equal round and reactive to light, extraocular movements intact, sclera anicteric, conjunctiva are normal. ENT: nares patent, oropharynx clear without exudates. Moist mucous membranes. NECK: Normal range of motion, bilateral anterior cervical lymphadenopathy that is mildly tender to palpation, easily mobile. There is a 2 x 2 centimeter area of swelling to the base of the posterior neck just above the C7 region. Mass is without fluctuance, firmness and mobility. LUNGS: Breath sounds clear to auscultation bilaterally and equal. No wheezes rales or rhonchi. HEART: Regular rate and rhythm without murmurs ABDOMEN: Soft, nontender, normoactive bowel sounds. No guarding, no rebound. No masses appreciated. EXTREMITIES: Normal range of motion, no pitting or edema. No cyanosis. NEUROLOGICAL: No focal neurological deficits. Moves all extremities spontaneously and on command. PSYCH: Normal mood, normal affect. SKIN: Warm, Dry, normal turgor, no rashes or lesions noted. Course - Re-evaluation Re-evalutation: 05/19/17 21:22 Patient presents with what appears to be a muscle spasm of her upper mid back. There is no fluctuance, apparent fluid collection, or spinal step-offs or deformities to suggest localized abscess, cyst, or acute spinal injury. Patient does also report a sore throat. Centor criteria 0 and I do not clinically suspect strep pharyngitis. History and exam are not consistent with a retropharyngeal abscess or peritonsillar abscess. Airway is patent. No difficulty handling oral secretions. Vitals within normal limits. Patient was treated with a dose of dexamethasone and advised on symptomatic care. Suspect likely viral pharyngitis. At this time will discharge with return precautions and follow-up recommendations. Verbal discharge instructions given a the bedside and opportunity for questions given. Medication warnings reviewed. Patient is in agreement with this plan and has verbalized understanding of return precautions and the need for primary care follow-up in the next 24-72 hours. - Vital Signs Vital signs: Temp Pulse Resp BP Pulse Ox 99 F 93 18 136/90 H 96 05/19/17 22:54 05/19/17 22:54 05/19/17 22:54 05/19/17 22:54 05/19/17 22:54 Discharge - Discharge Clinical Impression: Mid back pain, Muscle spasm, Viral pharyngitis Condition: Good Disposition: HOME, SELF-CARE Additional Instructions: The swelling and pain in her neck appears to be related to muscle spasm. Apply heat to the area regularly. In regards to your sore throat: Your symptoms are likely due to an viral infection and will resolve in the next 1-2 weeks. You have also been given a dose of steroids to help with your throat discomfort. Please continue to take ibuprofen 600 mg every 6 hours or Tylenol 1000 mg every 6 hours as needed for throat discomfort. You can also gargle with salt water. Continue to drink plenty of fluids. Follow-up with your primary care doctor in the next several days. Return if you become unable to swallow, have difficulty breathing, pass out, have persistent vomiting that prevents you from being able to tolerate fluids, or have any other symptoms that are concerning to you. Referrals: JOSE GUADALUPE KOHLER MD [Primary Care Provider] - Follow up as needed
[2017-05-19 22:57] VITALS: BP 136/90
== END 2017-05-19 22:54 | disposition home or self-care (01) ==
LOC: ER 18:18
DX: M54.9 Dorsalgia, unspecified (principal); M62.830 Muscle spasm of back; J02.9 Acute pharyngitis, unspecified; B97.89 Other viral agents as the cause of diseases classified elsewhere
CPT/HCPCS: 99283; J3490 ×2

== ENCOUNTER 2017-08-10 11:30 | Emergency (ER) | payer MEDICAID ==
[2017-08-10 11:35] VITALS: BP 121/76
--- NOTE | 2017-08-10 12:46 | ER Document Report ---
ED General - General Chief Complaint: Congestion Stated Complaint: CONGESTION, VOMITING, COUGH Time Seen by Provider: 08/10/17 12:10 Mode of Arrival: Ambulatory Information source: Patient TRAVEL OUTSIDE OF THE [place] IN LAST 30 DAYS: No - HPI Patient complains to provider of: multiple complaints Notes: Patient is here with multiple complaints. She states that for the last few days she has had nasal congestion, runny nose, cough, sore throat. No difficulty breathing or chest pain. No fever. She states that last night she vomited a few times but has had no vomiting since. No abdominal pain. No dysuria or hematuria. No rash. She also complains of pain to the left anterior biceps area for the last few days. No traumatic injury or fall. The pain is worse when she tries to raise her arm. He also complains of a "bump on the back of her neck ". No trauma or injury to this area. She does have a history of asthma. She denies any numbness, [place], weakness. She has no other complaints at this time. - Related Data Allergies/Adverse Reactions: No Known Allergies Allergy (Verified 05/19/17 18:20) Past Medical History - Social History Smoking Status: Never Smoker Chew tobacco use (# tins/day): No Frequency of alcohol use: None Drug Abuse: None Family History: Reviewed & Not Pertinent Patient has suicidal ideation: No Patient has homicidal ideation: No Pulmonary Medical History: Reports: Hx Asthma, Hx Bronchitis Denies: Hx Tuberculosis Neurological Medical History: Reports: Hx Migraine Renal/ Medical History: Denies: Hx Peritoneal Dialysis Past Surgical History: Reports: Hx Section, Hx Hysterectomy - Immunizations Hx Diphtheria, Pertussis, Tetanus Vaccination: Yes Review of Systems - Review of Systems -: Yes All other systems reviewed and negative Physical Exam - Vital signs Vitals: Temp Pulse Resp BP Pulse Ox 97.5 F 84 16 121/76 98 08/10/17 11:33 08/10/17 11:33 08/10/17 11:33 08/10/17 11:33 08/10/17 11:33 - Notes Notes: GENERAL: alert, cooperative, nontoxic, no distress. HEAD: normocephalic, atraumatic EYES: conjunctiva pink without discharge, no external redness or swelling. EARS: no external swelling, no external redness, no mastoid redness, swelling, tenderness. Ear canals are clear without swelling or drainage. TMs pearly roth , no redness, no bulging, normal landmarks, no perforation. NOSE: atraumatic, no external swelling. clear rhinorrhea noted. MOUTH/THROAT: mucous membranes moist and pink, posterior pharynx without erythema, swelling, exudate. No trismus or drooling. NECK: soft, supple, full range of motion, no meningismus. CHEST: no distress, lungs clear and equal throughout. No wheezing, rales, rhonchi. CARDIAC: regular rate and rhythm, no murmur, normal capillary refill, normal pulses. No peripheral edema noted. BACK: full range of motion, no CVA tenderness. Mild fullness to the upper back/ lower neck consistent with possible buffalo hump. No redness, no drainable abscess, no rash. EXTREMITIES: Mild tenderness to the left anterior shoulder/biceps insertion. No swelling. No redness. Slightly limited range of motion secondary to pain. Normal pulse and sensation distally. NEURO: alert and oriented A&O3, no focal deficits, full range of motion of all extremities. PYSCH: appropriate mood, affect. Patient is cooperative. SKIN: pink, warm, dry, no rash. Course - Re-evaluation Re-evalutation: 08/10/17 13:05 Patient is nontoxic appearing with stable vitals. She is here with multiple complaints. João cold-like symptoms for the last few days with sore throat. She is a benign exam aside from some nasal congestion. Throat exam is unremarkable no signs of peritonsillar abscess or distress. Rapid strep is negative. Lungs are clear. She is not hypoxic and her vitals are stable. She does complain of some left anterior shoulder/arm pain consistent with tendinitis. She had no traumatic injury there is no redness or signs of infection. She also complains of lump to her upper back. This point the patient will be discharged home with some Flonase, Claritin-D, Naprosyn. Instructions to follow-up with her primary care doctor at the next available appointment regarding the lump on her back. Is not an abscess or need emergent care at this time. Patient can be discharged home. Follow-up if not better within the next week, sooner for worsening symptoms, high fever, difficulty breathing or swallowing, or for any further concerns. The patient is noted to have elevated blood pressure during today's emergency department visit. The patient was informed of this finding. The patient was instructed that this may be related to pre-hypertension and requires further evaluation with a primary care provider. The patient has no hypertensive symptoms at this time. The patient's emergency department workup and current diagnosis were explained to the patient and or family. Follow-up instructions were provided. Medications if prescribed were discussed. Instructions for when to return to the emergency department including specific worrisome symptoms were discussed with the patient and/or family. - Vital Signs Vital signs: Temp Pulse Resp BP Pulse Ox 97.5 F 84 16 121/76 98 08/10/17 11:33 08/10/17 11:33 08/10/17 11:33 08/10/17 11:33 08/10/17 11:33 Discharge - Discharge Clinical Impression: Sore throat, Tendonitis URI (upper respiratory infection) Qualifiers: URI type: unspecified viral URI Qualified Code(s): J06.9 - Acute upper respiratory infection, unspecified Condition: Stable Disposition: HOME, SELF-CARE Instructions: Upper Respiratory Illness ([facility]), Tendonitis ([facility]) Additional Instructions: Take medications as prescribed. Ice to sore area. Follow-up with your doctor if not better in the next week, sooner for worsening symptoms, high fever, difficulty breathing or swallowing, severe pain, weakness, or for any further concerns. Your blood pressure was elevated during today's visit. Have this rechecked with your doctor. Prescriptions: Fluticasone Propionate [Flonase Nasal [place] 50 Mcg/[place] 16 gm] 1 spray NASL Q12 #1 inhaler Loratadine/Pseudoephedrine Sul [Claritin-D 12 Hour Tablet] 1 each PO BID PRN # 14 tab.sr.12h PRN Reason: Naproxen [Naprosyn] 500 mg PO BID #20 tablet Forms: Elevated Blood Pressure, Smoking Cessation Education, Return to Work Referrals: JOSE GUADALUPE KOHLER MD [Primary Care Provider] - Follow up as needed
== END 2017-08-10 13:16 | disposition home or self-care (01) ==
LOC: ER 11:30
DX: J06.9 Acute upper respiratory infection, unspecified (principal); M77.9 Enthesopathy, unspecified; R03.0 Elevated blood-pressure reading, without diagnosis of hypertension; Z90.710 Acquired absence of both cervix and uterus
CPT/HCPCS: 87070; 87880; 99283

== ENCOUNTER 2017-10-05 13:07 | Emergency (ER) | payer OTHER, MEDICAID ==
--- NOTE | 2017-10-05 14:17 | ER Document Report ---
ED Medical Screen (RME) - General Chief Complaint: Syncope Stated Complaint: DIZZY Time Seen by Provider: 10/05/17 14:10 Notes: 26-year-old female diabetic patient reports onset this morning about 8 AM of dizziness which started when she got to work. She reports the dizziness has been persistent and unchanged since 8:00 this morning. Nothing makes it better or worse. She reports episode of syncope in the bathroom at work. I have greeted and performed a rapid initial assessment of this patient. A comprehensive ED assessment and evaluation of the patient, analysis of test results and completion of the medical decision making process will be conducted by additional ED providers. TRAVEL OUTSIDE OF THE [place] IN LAST 30 DAYS: No - Related Data Allergies/Adverse Reactions: No Known Allergies Allergy (Verified 10/05/17 13:10) Past Medical History - Social History Chew tobacco use (# tins/day): No Frequency of alcohol use: None Drug Abuse: None Pulmonary Medical History: Reports: Hx Asthma, Hx Bronchitis Denies: Hx Tuberculosis Neurological Medical History: Reports: Hx Migraine Renal/ Medical History: Denies: Hx Peritoneal Dialysis Past Surgical History: Reports: Hx Section, Hx Hysterectomy - Immunizations Hx Diphtheria, Pertussis, Tetanus Vaccination: Yes Physical Exam - Vital signs Vitals: Temp Pulse Resp BP Pulse Ox 98.4 F 82 16 142/84 H 98 10/05/17 13:29 10/05/17 13:29 10/05/17 13:29 10/05/17 13:29 10/05/17 13:29 Course - Vital Signs Vital signs: Temp Pulse Resp BP Pulse Ox 98.4 F 82 16 142/84 H 98 10/05/17 13:29 10/05/17 13:29 10/05/17 13:29 10/05/17 13:29 10/05/17 13:29 Doctor's Discharge - Discharge Referrals: JOSE GUADALUPE KOHLER MD [Primary Care Provider] - Follow up as needed
[2017-10-05 15:03] LABS: ABSOLUTE BASOPHILS # (AUTO) 0.1 10^3/uL (0.0-0.2); ABSOLUTE EOSINOPHILS # (AUTO) 0.2 10^3/uL (0.0-0.6); ABSOLUTE LYMPHOCYTES (AUTO) 2.5 10^3/uL (0.5-4.7); ABSOLUTE MONOCYTES (AUTO) 0.8 10^3/uL (0.1-1.4); BASOPHILS % (AUTO) 0.8 % (0-2); EOSINOPHILS % (AUTO) 2.4 % (0-6); HEMATOCRIT 34.4 % (36.0-47.0); HEMOGLOBIN 11.4 g/dL (12.0-15.5); LYMPHOCYTES % (AUTO) 33.5 % (13-45); MEAN CORPUSCULAR HEMOGLOBIN 27.7 pg (27.0-33.4); MEAN CORPUSCULAR HGB CONC 33.2 g/dL (32.0-36.0); MEAN CORPUSCULAR VOLUME 84 fl (80-97); MONOCYTES % (AUTO) 10.9 % (3-13); PLATELET COUNT 426 10^3/uL (150-450); RED BLOOD COUNT 4.12 10^6/uL (3.72-5.28); RED CELL DISTRIBUTION WIDTH 13.4 % (11.5-14.0); SEGMENTED NEUTROPHILS % (AUTO) 52.4 % (42-78); TOTAL CELLS COUNTED % (AUTO) 100 %; WHITE BLOOD COUNT 7.6 10^3/uL (4.0-10.5)
[2017-10-05 15:23] LABS: ALANINE AMINOTRANSFERASE 24 U/L (9-52); ALKALINE PHOSPHATASE 74 U/L (38-126); ANION GAP 11 (5-19); ASPARTATE AMINO TRANSFERASE 15 U/L (14-36); BILIRUBIN,DIRECT 0.3 mg/dL (0.0-0.4); BILIRUBIN,TOTAL 0.4 mg/dL (0.2-1.3); BLOOD UREA NITROGEN 8 mg/dL (7-20); CARBON DIOXIDE 27 mmol/L (22-30); CHLORIDE 103 mmol/L (98-107); GLUCOSE 89 mg/dL (75-110); POTASSIUM 4.2 mmol/L (3.6-5.0); SODIUM 140.6 mmol/L (137-145); TOTAL PROTEIN 6.9 g/dL (6.3-8.2)
[2017-10-05 16:33] LABS: APPEARANCE,URINE CLEAR; BILIRUBIN,URINE NEGATIVE (NEGATIVE); COLOR,URINE YELLOW; GLUCOSE, URINE NEGATIVE (NEGATIVE); KETONES,URINE NEGATIVE (NEGATIVE); LEUKOCYTE ESTERASE,URINE TRACE (NEGATIVE); NITRITE,URINE NEGATIVE (NEGATIVE); PROTEIN,URINE NEGATIVE (NEGATIVE); URINE SPECIFIC GRAVITY 1.008; UROBILINOGEN,URINE NEGATIVE mg/dL (<2.0)
--- NOTE | 2017-10-05 16:36 | ER Document Report ---
ED General - General Chief Complaint: Syncope Stated Complaint: DIZZY Time Seen by Provider: 10/05/17 14:10 Mode of Arrival: Ambulatory Information source: Patient Notes: 26-year-old female presents after syncopal episode that occurred when she stood up from the toilet. Patient notes she felt light headed and dizzy and passed out Patient denies any chest pain shortness of breath difficulty breathing, denies any symptoms currently TRAVEL OUTSIDE OF THE [place] IN LAST 30 DAYS: No - HPI Onset: Just prior to arrival Onset/Duration: Sudden Quality of pain: No pain Severity: Mild Pain Level: Denies Associated symptoms: Weakness Exacerbated by: Standing Relieved by: Denies Similar symptoms previously: No Recently seen / treated by doctor: No - Related Data Allergies/Adverse Reactions: No Known Allergies Allergy (Verified 10/05/17 13:10) Past Medical History - Social History Smoking Status: Never Smoker Cigarette use (# per day): No Chew tobacco use (# tins/day): No Smoking Education Provided: No Frequency of alcohol use: None Drug Abuse: None Family History: Reviewed & Not Pertinent Patient has suicidal ideation: No Patient has homicidal ideation: No Pulmonary Medical History: Reports: Hx Asthma, Hx Bronchitis Denies: Hx Tuberculosis Neurological Medical History: Reports: Hx Migraine Renal/ Medical History: Denies: Hx Peritoneal Dialysis Past Surgical History: Reports: Hx Section, Hx Hysterectomy - Immunizations Hx Diphtheria, Pertussis, Tetanus Vaccination: Yes Review of Systems - Review of Systems Notes: REVIEW OF SYSTEMS: CONSTITUTIONAL : Denies fever, chills, or sweats. Denies recent illness. EENT: Denies eye, ear, throat, or mouth pain or symptoms. Denies nasal or sinus congestion or discharge. Denies throat, tongue, or mouth swelling or difficulty swallowing. CARDIOVASCULAR: Denies chest pain. Denies palpitations or racing or irregular heart beat. Denies ankle edema. RESPIRATORY: Denies cough, cold, or chest congestion. Denies shortness of breath, difficulty breathing, or wheezing. GASTROINTESTINAL: Denies abdominal pain or distention. Denies nausea, vomiting , or diarrhea. Denies blood in vomitus, stools, or per rectum. Denies black, tarry stools. Denies constipation. GENITOURINARY: Denies difficulty urinating, painful urination, burning, frequency, blood in urine, or discharge. FEMALE GENITOURINARY: Denies vaginal bleeding, heavy or abnormal periods, irregular periods. Denies vaginal discharge or odor. MUSCULOSKELETAL: Denies back or neck pain or stiffness. Denies joint pain or swelling. SKIN: Denies rash, lesions or sores. HEMATOLOGIC : Denies easy bruising or bleeding. LYMPHATIC: Denies swollen, enlarged glands. NEUROLOGICAL: Admits to dizziness syncopal episode PSYCHIATRIC: Denies anxiety or stress. Denies depression, suicidal ideation, or homicidal ideation. ALL OTHER SYSTEMS REVIEWED AND NEGATIVE. PHYSICAL EXAMINATION: GENERAL: Well-appearing, well-nourished and in no acute distress. HEAD: Atraumatic, normocephalic. EYES: Pupils equal round and reactive to light, extraocular movements intact, conjunctiva are normal. ENT: Nares patent, oropharynx clear without exudates. Moist mucous membranes. NECK: Normal range of motion, supple without lymphadenopathy LUNGS: Breath sounds clear to auscultation bilaterally and equal. No wheezes rales or rhonchi. HEART: Regular rate and rhythm without murmurs ABDOMEN: Soft, nontender, nondistended abdomen. No guarding, no rebound. No masses appreciated. Female : deferred Musculoskeletal: Normal range of motion, no pitting or edema. No cyanosis. NEUROLOGICAL: Cranial nerves grossly intact. Normal speech, normal gait. Normal sensory, motor exams PSYCH: Normal mood, normal affect. SKIN: Warm, Dry, normal turgor, no rashes or lesions noted. Dictation was performed using [employer] voice recognition software Physical Exam - Vital signs Vitals: Temp Pulse Resp BP Pulse Ox 98.4 F 82 16 142/84 H 98 10/05/17 13:29 10/05/17 13:29 10/05/17 13:29 10/05/17 13:29 10/05/17 13:29 Course - Re-evaluation Re-evalutation: 10/05/17 17:20 Patient's lab work was quite benign, she overall looks well, believe she is stable for discharge, I believe this was orthostatic in nature since it occurred after standing. After performing a Medical Screening Examination, I estimate there is LOW risk for INTRACRANIAL HEMORRHAGE, ISCHEMIC CVA, MALIGNANT DYSRHYTHMIA, ACUTE CORONARY SYNDROME, MENINGITIS, PULMONARY EMBOLISM, or SEPSIS thus I consider the discharge disposition reasonable. I have reevaluated this patient multiple times and no significant life threatening changes are noted. The patient and I have discussed the diagnosis and risks, and we agree with discharging home with close follow-up with the understanding that symptoms and presentations can change. We also discussed returning to the Emergency Department immediately if new or worsening symptoms occur. We have discussed the symptoms which are most concerning (e.g., changing or worsening pain, weakness, vomiting, fever) that necessitate immediate return. - Vital Signs Vital signs: Temp Pulse Resp BP Pulse Ox 98.4 F 88 18 114/58 L 97 10/05/17 16:52 10/05/17 16:52 10/05/17 16:52 10/05/17 16:52 10/05/17 16:52 - Laboratory Result Diagrams: 10/05/17 14:20 10/05/17 14:20 Laboratory results interpreted by me: 10/05/17 10/05/17 14:20 14:20 Hgb 11.4 L Hct 34.4 L Urine Blood SMALL H Ur Leukocyte Esterase TRACE H Discharge - Discharge Clinical Impression: Orthostatic syncope Condition: Stable Disposition: HOME, SELF-CARE Instructions: Syncopal Episode ([facility]) Forms: Return to Work Referrals: JOSE GUADALUPE KOHLER MD [Primary Care Provider] - Follow up tomorrow
[2017-10-05 16:57] VITALS: BP 114/58
== END 2017-10-05 16:57 | disposition home or self-care (01) ==
LOC: ER 13:07
DX: I95.1 Orthostatic hypotension (principal); R42 Dizziness and giddiness; J45.909 Unspecified asthma, uncomplicated
CPT/HCPCS: 36415; 80053; 81001; 83036; 85025; 99284

== ENCOUNTER 2017-11-07 13:33 | Emergency (ER) | payer MEDICAID ==
--- NOTE | 2017-11-07 15:36 | ER Document Report ---
ED General - General Chief Complaint: Chest Pain Stated Complaint: CHEST PAIN, BACK PAIN Time Seen by Provider: 11/07/17 15:14 Notes: Patient presents for concern chest pain sharp parasternal left chest radiates to her back worse when she takes a deep breath. States these are similar pain she has had in the past which she was evaluated in early May and normal ventilation/perfusion scan at that time with serial troponins was referred to Dr. Damon for outpatient referral due to concerns of T-wave inversions found on EKG. Patient states she was evaluated and no concerning workup was discovered. Radiates to her back. No recent cough congestion or fevers. Patient is PERC negative with questioning but pulse of 102 on EKG. TRAVEL OUTSIDE OF THE [place] IN LAST 30 DAYS: No - Related Data Allergies/Adverse Reactions: No Known Allergies Allergy (Verified 10/05/17 13:10) Past Medical History - Social History Smoking Status: Former Smoker Family History: Reviewed & Not Pertinent Patient has suicidal ideation: No Patient has homicidal ideation: No Pulmonary Medical History: Reports: Hx Asthma, Hx Bronchitis Denies: Hx Tuberculosis Neurological Medical History: Reports: Hx Migraine Renal/ Medical History: Denies: Hx Peritoneal Dialysis Past Surgical History: Reports: Hx Section, Hx Hysterectomy - Immunizations Hx Diphtheria, Pertussis, Tetanus Vaccination: Yes Review of Systems - Review of Systems Constitutional: No symptoms reported EENT: No symptoms reported Cardiovascular: See HPI Respiratory: No symptoms reported Gastrointestinal: No symptoms reported Genitourinary: No symptoms reported Female Genitourinary: No symptoms reported Musculoskeletal: No symptoms reported Skin: No symptoms reported Hematologic/Lymphatic: No symptoms reported Neurological/Psychological: No symptoms reported Physical Exam - Vital signs Vitals: Temp Pulse Resp BP Pulse Ox 98.5 F 96 14 132/70 H 100 11/07/17 13:52 11/07/17 13:52 11/07/17 13:52 11/07/17 13:52 11/07/17 13:52 Interpretation: Normal - General General appearance: Appears well, Alert - HEENT Head: Normocephalic Eyes: Normal Extraocular movements intact: Yes Pupils: PERRL - Respiratory Respiratory status: No respiratory distress Chest status: Tender - Patient states she has tenderness to palpation parasternal left upper chest wall. No rashes or induration on exam Breath sounds: Normal - of chest - Cardiovascular Rhythm: Regular Heart sounds: Normal auscultation Murmur: No - Abdominal Inspection: Normal Distension: No distension - Extremities General upper extremity: Normal inspection General lower extremity: Normal inspection - Neurological Neuro grossly intact: Yes Cognition: Normal Orientation: AAOx4 Course - Re-evaluation Re-evalutation: 11/07/17 15:32 Patient well-appearing experiencing sharp chest pain that radiates to her back that started has been continuous since 7:30 AM in absence of she states that she has had similar episodes of chest pain and was evaluated for the same type of pain in May of this year with negative workup both in the emergency department and with Dr. Damon outpatient per the patient. Patient is obese and states she is prediabetic. Due to continuous pain since 7:30 AM we will run serial troponin. EKG reveals no changes from May 2017 EKG. Patient is PERC negative on questioning but vitals reveal pulse 102 on EKG. Pending chest x-ray. Will also provide Toradol. If workup negative will be discharged with outpatient follow-up with low risk HEART score. 11/07/17 17:09 Patient's d-dimer negative, troponin negative. Patient's symptoms improved with Toradol administration. Will provide 5 days of steriods follow-up with primary care physician if symptoms are not improving 11/10/17 13:07 - Vital Signs Vital signs: Temp Pulse Resp BP Pulse Ox 98.1 F 84 16 122/81 99 11/07/17 17:32 11/07/17 17:32 11/07/17 17:32 11/07/17 17:32 11/07/17 17:32 - Diagnostic Test Radiology reviewed: Image reviewed - CXR NAD per rads - EKG Interpretation by Nm EKG shows normal: Sinus rhythm Rate: Tachycardia Rhythm: NSR - Normal intervals, mild depression in leads III, AVF, no significant change from 05/04/17 Discharge - Discharge Clinical Impression: Pleurisy Condition: Good Disposition: HOME, SELF-CARE Instructions: Pleurisy ([facility]) Prescriptions: Prednisone [Deltasone 20 mg Tablet] 2 tab PO DAILY 5 Days #10 tablet Forms: Return to Work Referrals: WILBER RICKETTS DO [Primary Care Provider] - Follow up in 1 week
--- NOTE | 2017-11-07 15:57 | RADIOLOGY REPORT (SQ) ---
EXAM DESCRIPTION: CHEST 2 VIEWS COMPLETED DATE/TIME: 11/07/2017 3:49 pm REASON FOR STUDY: chest pain COMPARISON: None. EXAM PARAMETERS: NUMBER OF VIEWS: two views TECHNIQUE: Digital Frontal and Lateral radiographic views of the chest acquired. RADIATION DOSE: NA LIMITATIONS: none FINDINGS: LUNGS AND PLEURA: No opacities, masses or pneumothorax. No pleural effusion. MEDIASTINUM AND HILAR STRUCTURES: No masses or contour abnormalities. HEART AND VASCULAR STRUCTURES: Heart normal size. No evidence for failure. BONES: No acute findings. HARDWARE: None in the chest. OTHER: No other significant finding. IMPRESSION: NO ACUTE RADIOGRAPHIC FINDING IN THE CHEST. TECHNICAL DOCUMENTATION: JOB ID: [id number] [employer]- All Rights Reserved Reading location - IP/workstation name: [email or web address]
[2017-11-07] MEDS ORDERED: KETOROLAC TROMETHAMINE 60 MG/2 ML SDV IM ONE (16:33)
[2017-11-07 17:38] VITALS: BP 122/81
--- NOTE | 2017-11-07 22:36 | EKG REPORT ---
SEVERITY:- ABNORMAL ECG - SINUS TACHYCARDIA NONSPECIFIC T ABNORMALITIES, INFERIOR LEADS : Confirmed by: Cristy Corona MD 07-Nov-2017 22:35:22
== END 2017-11-07 17:37 | disposition home or self-care (01) ==
LOC: ER 13:33
DX: R09.1 Pleurisy (principal); R07.9 Chest pain, unspecified; M54.9 Dorsalgia, unspecified; Z87.891 Personal history of nicotine dependence; J45.909 Unspecified asthma, uncomplicated
CPT/HCPCS: 93005; 99284; 96372; 36415; 84484; 85379; 71046; 93010; J1885

== ENCOUNTER 2018-05-17 14:47 | Emergency (ER) | payer SELFPAY ==
[2018-05-17] MEDS ORDERED: NORMAL SALINE 1000 ML 1,000 ML IV ONE (15:09)
--- NOTE | 2018-05-17 15:10 | ER Document Report ---
ED Medical Screen (RME) - General Chief Complaint: Vomiting Stated Complaint: FEVER Time Seen by Provider: 05/17/18 15:05 Primary Care Provider: WILBER RICKETTS DO [Primary Care Provider] - Follow up as needed Notes: Chief complaint: Fever History of complain:( obtained from----patient) 27 years old female presents today with fever chills general body aches and pain, nauseous vomiting many times loose stools general malaise. Going on for the last 2-3 days. PHYSICAL EXAMINATION: GENERAL: Well-appearing, well-nourished and in mild to moderate acute distress. Obesity HEAD: Atraumatic, normocephalic. EYES: Pupils equal round and reactive to light, extraocular movements intact, conjunctiva are normal. ENT: Nares patent, oropharynx clear without exudates. Moist mucous membranes. NECK: Normal range of motion, supple without lymphadenopathy LUNGS: Breath sounds clear to auscultation bilaterally and equal. No wheezes rales or rhonchi. HEART: Regular rate and rhythm without murmurs ABDOMEN: Soft, diffuse mild tenderness, nondistended abdomen. No guarding, no rebound. No masses appreciated. Examination of genitals-deferred Musculoskeletal: Normal range of motion, no pitting or edema. No cyanosis. Dictation was performed using [employer] voice recognition software TRAVEL OUTSIDE OF THE [place] IN LAST 30 DAYS: No - Related Data Allergies/Adverse Reactions: No Known Allergies Allergy (Verified 05/17/18 14:47) Past Medical History Pulmonary Medical History: Reports: Hx Asthma, Hx Bronchitis Denies: Hx Tuberculosis Neurological Medical History: Reports: Hx Migraine Renal/ Medical History: Denies: Hx Peritoneal Dialysis Past Surgical History: Reports: Hx Section, Hx Hysterectomy - Immunizations Hx Diphtheria, Pertussis, Tetanus Vaccination: Yes Physical Exam - Vital signs Vitals: Temp Pulse Resp BP Pulse Ox 100.7 F H 105 H 18 129/73 H 98 05/17/18 14:51 05/17/18 14:51 05/17/18 14:51 05/17/18 14:51 05/17/18 14:51 Course - Vital Signs Vital signs: Temp Pulse Resp BP Pulse Ox 100.7 F H 105 H 18 129/73 H 98 05/17/18 14:51 05/17/18 14:51 05/17/18 14:51 05/17/18 14:51 05/17/18 14:51 Doctor's Discharge - Discharge Referrals: WILBER RICKETTS DO [Primary Care Provider] - Follow up as needed
[2018-05-17] MEDS ORDERED: ONDANSETRON HCL INJ/PF 4 MG/2 ML SDV IV ONE (16:30)
[2018-05-17] MEDS ORDERED: KETOROLAC TROMETHAMINE INJ/PF 30 MG/1 ML SDV IV ONE (16:35)
--- NOTE | 2018-05-17 16:40 | ER Document Report ---
HPI - HPI Time Seen by Provider: 05/17/18 15:05 Pain Level: Denies Notes: Patient is a 27-year-old female who presents to the ED complaining of nasal congestion/discharge, dry nonproductive cough, fever, body ache, n/v 2 days. Last episode of emesis was yesterday. Patient states that she is still eating and drinking without difficulties, but does have a decreased p.o. intake. She is still urinating normally having normal bowel movements. Patient has been using some [id number] meds for symptoms. She denies any significant past medical history including cardiopulmonary history and immunocompromised conditions. Pt has had a total hysterectomy. Patient denies any smoking or IV drug use. Denies any current headache, neck pain, sore throat, chest pain, palpitations, syncope, shortness of breath, wheeze, dyspnea, abdominal pain, diarrhea, urinary retention, dysuria, hematuria, or rash. - ROS Systems Reviewed and Negative: Yes All other systems reviewed and negative - REPRODUCTIVE Reproductive: DENIES: : - DERM Skin Color: Normal Past Medical History - Social History Smoking Status: Never Smoker Chew tobacco use (# tins/day): No Frequency of alcohol use: None Drug Abuse: None Family History: Reviewed & Not Pertinent Patient has suicidal ideation: No Patient has homicidal ideation: No Pulmonary Medical History: Reports: Hx Asthma, Hx Bronchitis Denies: Hx Tuberculosis Neurological Medical History: Reports: Hx Migraine Renal/ Medical History: Denies: Hx Peritoneal Dialysis Past Surgical History: Reports: Hx Section, Hx Hysterectomy - Immunizations Hx Diphtheria, Pertussis, Tetanus Vaccination: Yes Vertical Provider Document - CONSTITUTIONAL Agree With Documented VS: Yes Notes: PHYSICAL EXAMINATION: GENERAL: Well-appearing, well-nourished and in no acute distress. A&Ox4. Answers questions appropriately. Moves comfortably w/o notable distress HEAD: Atraumatic, normocephalic. EYES: Pupils equal round and reactive to light, extraocular movements intact, sclera anicteric, conjunctiva are normal. ENT: EAC clear b/l. TM's intact b/l without erythema, fluid, or perforation. Nares patent and with clear discharge. oropharynx no erythema without exudates. Tonsils absent. No palatine shift. Uvula midline. No tongue protrusion. No drooling, hoarseness, or airway compromise. Moist mucous membranes. No sinus tenderness. NECK: Normal range of motion, supple without lymphadenopathy. No rigidity/meningismus. LUNGS: Breath sounds clear to auscultation bilaterally and equal. No wheezes rales or rhonchi. No retractions HEART: Regular rate and rhythm without murmurs, rubs, gallops. ABDOMEN: Soft, nontender, nondistended abdomen. No guarding, no rebound. Normal bowel sounds present. No CVA tenderness bilaterally. NEUROLOGICAL: Normal speech, normal gait. PSYCH: Normal mood, normal affect. SKIN: Warm, Dry, normal turgor, no rashes or lesions noted. - INFECTION CONTROL TRAVEL OUTSIDE OF THE [place] IN LAST 30 DAYS: No Course - Re-evaluation Re-evalutation: 05/17/18 17:18 Patient is an afebrile, well-hydrated, 27-year-old female who presents to the ED with influenza. Vitals are acceptable. PE is otherwise unremarkable. Labs are all ordered at triage and are otherwise unremarkable. Patient has no significa nt cardiopulmonary or immunocompromised medical conditions. Patient's lungs are clear to auscultation bilaterally without tachycardia, hypoxia, or tachypnea. Patient is tolerating p.o. without any difficulties. Thoroughly reviewed the risks, benefits, potential side effects, estimated cost without insurance with patient. After thorough review, patient declined Tamiflu at this time. Low suspicion for any meningitis, sepsis, peritonsillar/pharyngeal abscess, respiratory compromise, severe dehydration, or other emergent systemic condition at this time. Patient is aware this condition can change from initial presentation and she needs to monitor symptoms closely. Conservative measures otherwise for symptoms. Recheck with your PCM in 3-5 days. Return to the ED with any worsening/concerning symptoms otherwise as reviewed in discharge. Patient is in agreement. - Vital Signs Vital signs: Temp Pulse Resp BP Pulse Ox 100.7 F H 105 H 18 129/73 H 98 05/17/18 14:51 05/17/18 14:51 05/17/18 14:51 05/17/18 14:51 05/17/18 14:51 - Laboratory Result Diagrams: 05/17/18 16:17 05/17/18 16:17 Discharge - Discharge Clinical Impression: Influenza Condition: Stable Disposition: HOME, SELF-CARE Additional Instructions: Maintain adequate fluid intake Take meds as directed tylenol/ibuprofen as needed over the counter cold medication as needed for symptoms Humidified air may help Wash your hands regularly Wear a mask when coughing F/u: with your PCM in 3-5 days for a recheck Return to the ED with any fever, worsening pain, chest pain, palpitations, syncope, worsening OROZCO, neck pain/stiffness, shortness of breath, wheezing, drooling, trouble swallowing/breathing, abdominal pain, n/v/d, rash, or worsening/concerning symptoms otherwise. Prescriptions: Ondansetron [Zofran Odt 4 mg Tablet] 1 - 2 tab PO Q4H PRN #15 tab.rapdis PRN Reason: For Nausea/Vomiting Forms: Elevated Blood Pressure Referrals: WILBER RICKETTS DO [Primary Care Provider] - Follow up as needed
[2018-05-17 16:48] LABS: APPEARANCE,URINE CLOUDY; BILIRUBIN,URINE NEGATIVE (NEGATIVE); COLOR,URINE YELLOW; GLUCOSE, URINE NEGATIVE (NEGATIVE); HEMATOCRIT 36.2 % (36.0-47.0); HEMOGLOBIN 12.2 g/dL (12.0-15.5); KETONES,URINE NEGATIVE (NEGATIVE); LEUKOCYTE ESTERASE,URINE SMALL (NEGATIVE); MEAN CORPUSCULAR HEMOGLOBIN 28.1 pg (27.0-33.4); MEAN CORPUSCULAR HGB CONC 33.8 g/dL (32.0-36.0); MEAN CORPUSCULAR VOLUME 83 fl (80-97); NITRITE,URINE NEGATIVE (NEGATIVE); PLATELET COUNT 343 10^3/uL (150-450); PROTEIN,URINE NEGATIVE (NEGATIVE); RED BLOOD COUNT 4.36 10^6/uL (3.72-5.28); RED CELL DISTRIBUTION WIDTH 13.5 % (11.5-14.0); URINE SPECIFIC GRAVITY 1.026; WHITE BLOOD COUNT 4.8 10^3/uL (4.0-10.5)
[2018-05-17 17:07] LABS: ABSOLUTE MONOCYTES # (MANUAL) 0.7 10^3/uL (0.1-1.4); ABSOLUTE NEUTROPHILS# (MANUAL) 3.1 10^3/uL (1.7-8.2); BAND NEUTROPHILS % (MANUAL) 4 % (3-5); BASOPHILS % (MANUAL) 0 % (0-2); EOSINOPHILS % (MANUAL) 0 % (0-6); LYMPHOCYTES % (MANUAL) 17 % (13-45); MONOCYTES % (MANUAL) 14 % (3-13); PLATELET COMMENT ADEQUATE; PLATELET LARGE PRESENT; SEGMENTED NEUTROPHILS % (MAN) 61 % (42-78); TOTAL CELLS COUNTED 100; TOXIC GRANULATION SLIGHT; TOXIC VACUOLATION PRESENT
[2018-05-17 17:08] LABS: HYPOCHROMASIA SLIGHT
[2018-05-17 17:09] LABS: ALANINE AMINOTRANSFERASE 15 U/L (9-52); ALBUMIN 4.6 g/dL (3.5-5.0); ALKALINE PHOSPHATASE 66 U/L (38-126); ANION GAP 11 (5-19); ASPARTATE AMINO TRANSFERASE 19 U/L (14-36); BILIRUBIN,DIRECT 0.2 mg/dL (0.0-0.4); BILIRUBIN,TOTAL 0.3 mg/dL (0.2-1.3); BLOOD UREA NITROGEN 8 mg/dL (7-20); CALCIUM 9.3 mg/dL (8.4-10.2); CARBON DIOXIDE 26 mmol/L (22-30); CHLORIDE 103 mmol/L (98-107); GLUCOSE 108 mg/dL (75-110); POTASSIUM 4.1 mmol/L (3.6-5.0); SODIUM 140.1 mmol/L (137-145); TOTAL PROTEIN 7.8 g/dL (6.3-8.2)
[2018-05-17 17:10] LABS: A TYPE INFLUENZA AG POSITIVE (NEGATIVE); B INFLUENZA AG NEGATIVE (NEGATIVE)
[2018-05-17 17:37] VITALS: BP 137/78
== END 2018-05-17 17:40 | disposition home or self-care (01) ==
LOC: ER 14:47
DX: J11.1 Influenza due to unidentified influenza virus with other respiratory manifestations (principal); R09.81 Nasal congestion; R05 Cough; R50.9 Fever, unspecified; R11.2 Nausea with vomiting, unspecified; R52 Pain, unspecified; J45.909 Unspecified asthma, uncomplicated; Z90.710 Acquired absence of both cervix and uterus
CPT/HCPCS: 99283; 96361; 96374; 96375; 36415; 85025; 81025; 80053; 81001; 87804; J1885; J2405; J7030

== ENCOUNTER 2018-05-19 20:28 | Emergency (ER) | payer SELFPAY ==
--- NOTE | 2018-05-19 22:40 | RADIOLOGY REPORT (SQ) ---
EXAM DESCRIPTION: XR CHEST 1 VIEW COMPLETED DATE/TME: 05/19/2018 21:46 CLINICAL HISTORY: 27 years Female, sob COMPARISON: NUMBER OF VIEWS/TECHNIQUE: 1/AP FINDINGS: Adequate lung volume, clear parenchyma, normal cardiac silhouette, and intact bony thorax. IMPRESSION: No acute cardiopulmonary findings.
[2018-05-19] MEDS ORDERED: ALBUTEROL SULFATE HFA (90 MCG/PUFF) 200 PUFF/8.5 GM MDI IH ONE (22:45)
--- NOTE | 2018-05-19 22:46 | ER Document Report ---
ED General - General Chief Complaint: Shortness Of Breath Stated Complaint: POSSIBLE FLU Time Seen by Provider: 05/19/18 21:46 Primary Care Provider: WILBER RICKETTS DO [Primary Care Provider] - Follow up tomorrow Notes: Patient is a 27-year-old female without chronic medical problems, diagnosed with influenza A based on positive testing 2 days ago who presents with increased shortness of breath particular with coughing and a sensation of chest tightness within the last 24 hours. Patient states that her sensation of shortness of breath is more of a tightness of her chest and notes a diffuse, aching chest discomfort across the chest worsened by coughing. She has not tried anything for improvement of her symptoms. States that she has had these symptoms over the last several days but that they have been worse due to the persistent C of her coughing. She is continued to have fever. No nausea or vomiting. Has not yet followed up with her primary care doctor. Denies any syncope, weakness or numbness. TRAVEL OUTSIDE OF THE [place] IN LAST 30 DAYS: No - Related Data Allergies/Adverse Reactions: No Known Allergies Allergy (Verified 05/17/18 14:47) Past Medical History - General Information source: Patient - Social History Smoking Status: Never Smoker Frequency of alcohol use: None Drug Abuse: None Lives with: Spouse/Significant other Family History: Reviewed & Not Pertinent Patient has suicidal ideation: No Patient has homicidal ideation: No Pulmonary Medical History: Reports: Hx Asthma, Hx Bronchitis Denies: Hx Tuberculosis Neurological Medical History: Reports: Hx Migraine Renal/ Medical History: Denies: Hx Peritoneal Dialysis Past Surgical History: Reports: Hx Section, Hx Hysterectomy - Immunizations Hx Diphtheria, Pertussis, Tetanus Vaccination: Yes Review of Systems - Review of Systems Notes: Constitutional: Positive for fever. HENT: Positive for sore throat. Eyes: Negative for visual changes. Cardiovascular: Negative for chest pain. Respiratory: Positive for shortness of breath and cough. Gastrointestinal: Negative for abdominal pain, vomiting or diarrhea. Genitourinary: Negative for dysuria. Musculoskeletal: Positive for chest wall tightness Skin: Negative for rash. Neurological: Negative for headaches, weakness or numbness. 10 point ROS negative except as marked above and in HPI. Physical Exam - Vital signs Vitals: Temp Pulse Resp BP Pulse Ox 99.4 F 110 H 18 131/92 H 98 05/19/18 20:42 05/19/18 20:42 05/19/18 20:42 05/19/18 20:42 05/19/18 20:42 Interpretation: Tachycardic Notes: PHYSICAL EXAMINATION: GENERAL: Well-appearing, well-nourished and in no acute distress. HEAD: Atraumatic, normocephalic. EYES: Pupils equal round and reactive to light, extraocular movements intact, sclera anicteric, conjunctiva are normal. ENT: nares patent, oropharynx clear without exudates. Moist mucous membranes. NECK: Normal range of motion, supple without lymphadenopathy LUNGS: Breath sounds clear to auscultation bilaterally and equal. No wheezes rales or rhonchi. HEART: Regular rate and rhythm without murmurs ABDOMEN: Soft, nontender, normoactive bowel sounds. No guarding, no rebound. No masses appreciated. EXTREMITIES: Normal range of motion, no pitting or edema. No cyanosis. NEUROLOGICAL: No focal neurological deficits. Moves all extremities spontaneously and on command. PSYCH: Normal mood, normal affect. SKIN: Warm, Dry, normal turgor, no rashes or lesions noted. Course - Re-evaluation Re-evalutation: 05/19/18 22:44 Patient presents with ongoing mild shortness of breath in the context of a positive flu test 48 hours ago. Patient did test positive for flu A. Patient is not hypoxic nor tachypneic at time of my evaluation. Initial tachycardia noted in triage resolved at the time of my evaluation. Chest x-ray without any evidence of a superimposed pneumonia. No history or exam findings to suggest a development of ARDS. Patient is not wheezing on exam. I have advised that her symptoms are likely related to ongoing influenza and that she needs to continue to provide symptom medic treatment at home as well as follow-up close with her primary care doctor. At this time will discharge with return precautions and follow-up recommendations. Verbal discharge instructions given a the bedside and opportunity for questions given. Medication warnings reviewed. Patient is in agreement with this plan and has verbalized understanding of return precautions and the need for primary care follow-up in the next 24-72 hours. - Vital Signs Vital signs: Temp Pulse Resp BP Pulse Ox 99.2 F 97 17 119/74 96 05/19/18 23:17 05/19/18 23:17 05/19/18 23:17 05/19/18 23:17 05/19/18 23:17 - Diagnostic Test Radiology reviewed: Image reviewed, Reports reviewed Radiology results interpreted by me: 05/19/18 22:44 Chest x-ray: No acute infiltrate or pneumothorax Discharge - Discharge Clinical Impression: Shortness of breath, Influenza A Condition: Good Disposition: HOME, SELF-CARE Additional Instructions: You have influenza. There is no treatment that is effective for this diagnosis other than supportive care at home. This includes drinking plenty of fluids, using Tylenol or ibuprofen as needed for fever and discomfort, and using the inhaler with which you have been sent home as needed for feelings of chest tightness. Your chest x-ray is normal today. Please follow closely with you primary care physician the next 1-2 days regarding this diagnosis. Return to the emergency department immediately if you began to have persistent vomiting prevents you from being able to keep fluids down for more than 12 hours, you pass out, you have worsening difficulty breathing, you become confused, or you have any other symptoms that are worrisome to you. Referrals: WILBER RICKETTS DO [Primary Care Provider] - Follow up tomorrow
[2018-05-19 23:20] VITALS: BP 119/74
== END 2018-05-19 23:20 | disposition home or self-care (01) ==
LOC: ER 20:28
DX: J11.1 Influenza due to unidentified influenza virus with other respiratory manifestations (principal); R06.02 Shortness of breath; Z90.710 Acquired absence of both cervix and uterus
CPT/HCPCS: 99283; 71045; J3490

== ENCOUNTER 2018-07-29 20:02 | Emergency (ER) | payer SELFPAY ==
[2018-07-29] MEDS ORDERED: ACETAMINOPHEN 325 MG TABLET PO ONE (21:40)
--- NOTE | 2018-07-29 21:45 | ER Document Report ---
HPI - HPI Patient complains to provider of: Right knee pain Time Seen by Provider: 07/29/18 20:58 Pain Level: 3 Context: Patient is a morbidly obese 27-year-old female for generalized right knee pain. Patient states she has had right knee pain for the last couple of days. She is unsure of any sort of injury or trauma. Patient's denying any history or exposure to gonorrhea or chlamydia. Denies vaginal discharge. Patient denies any history of gout. Patient denies any numbness or Weakness, tingling in any extremity. - REPRODUCTIVE Reproductive: DENIES: : - MUSCULOSKELETAL Musculoskeletal: REPORTS: Extremity pain Past Medical History - General Information source: Patient - Social History Smoking Status: Unknown if Ever Smoked Frequency of alcohol use: Occasional Family History: Reviewed & Not Pertinent Patient has suicidal ideation: No Patient has homicidal ideation: No Pulmonary Medical History: Reports: Hx Asthma, Hx Bronchitis Denies: Hx Tuberculosis Neurological Medical History: Reports: Hx Migraine Renal/ Medical History: Denies: Hx Peritoneal Dialysis Past Surgical History: Reports: Hx Section, Hx Hysterectomy - Immunizations Hx Diphtheria, Pertussis, Tetanus Vaccination: Yes Vertical Provider Document - CONSTITUTIONAL Agree With Documented VS: Yes Notes: GENERAL: Morbidly obese alert, interacts well. No acute distress. HEAD: Normocephalic, atraumatic. EYES: Pupils equal, round, and reactive to light. Extraocular movements intact. ENT: Oral mucosa moist, tongue midline. NECK: Full range of motion. Supple. Trachea midline. LUNGS: Clear to auscultation bilaterally, no wheezes, rales, or rhonchi. No respiratory distress. HEART: Regular rate and rhythm. No murmur ABDOMEN: Soft, non-tender. Non-distended. Bowel sounds present in all 4 quadrants. EXTREMITIES: Moves all 4 extremities spontaneously. No edema, normal radial and dorsalis pedis pulses bilaterally. No cyanosis. Patient's right knee does not appear swollen, erythematous, warm to touch. No pain elicited on anterior withdrawal, pain elicited on valgus maneuver no pain elicited on varus maneuver. 5 out of 5 strength all 4 extremities. BACK: no cervical, thoracic, lumbar midline tenderness. No saddle anesthesia, normal distal neurovascular exam. NEUROLOGICAL: Alert and oriented x3. Normal speech. cranial nerves II through XII grossly intact PSYCH: Normal affect, normal mood. SKIN: Warm, dry, normal turgor. No rashes or lesions noted. - INFECTION CONTROL TRAVEL OUTSIDE OF THE [place] IN LAST 30 DAYS: No Course - Re-evaluation Re-evalutation: 07/29/18 21:43 Patient's right knee is non-erythematous, non-warm, nonswollen. Although there is no history of trauma there is also no history of gonorrhea or chlamydia, vaginal discharge. Patient denies any history of gout. Due to pain elicited upon physical maneuvers ligamental injury suspected. Discussed use of knee immobilizer and follow-up with orthopedics. Patient voices understanding stable for discharge. - Vital Signs Vital signs: Temp Pulse Resp BP Pulse Ox 98.5 F 72 22 H 140/71 H 95 07/29/18 20:51 07/29/18 20:51 07/29/18 20:51 07/29/18 20:51 07/29/18 20:51 Discharge - Discharge Clinical Impression: Right knee pain Qualifiers: Chronicity: acute Qualified Code(s): M25.561 - Pain in right knee Condition: Stable Disposition: HOME, SELF-CARE Instructions: Use of Crutches ([facility]), Suspected Internal Knee Injury ([facility]), Ice & Elevation ([facility]), Knee Immobilizing Splint ([facility]), Sprained Knee ([facility]) Additional Instructions: As we discussed you have been seen and treated in the emergency department for potential injury to the ligaments in your right knee. Please use knee immobilizer and crutches as needed. Please also take [id number] Tylenol Motrin for generalized pain. Please follow-up with orthopedics within the next 24 to 48 hours. Please return to the emergency room for any other concerning symptoms. Forms: Return to Work Referrals: KENISHA COLMENARES DO [ACTIVE STAFF] - Follow up as needed
[2018-07-29 22:48] VITALS: BP 114/69
== END 2018-07-29 22:48 | disposition home or self-care (01) ==
LOC: ER 20:02
DX: M25.561 Pain in right knee (principal); J45.909 Unspecified asthma, uncomplicated
CPT/HCPCS: 99283; L1830

== ENCOUNTER 2018-09-02 21:45 | Emergency (ER) | payer SELFPAY ==
[2018-09-02] MEDS ORDERED: ONDANSETRON HCL INJ/PF 4 MG/2 ML SDV IV ONE (23:15)
[2018-09-02] MEDS ORDERED: NORMAL SALINE 1000 ML 1,000 ML IV ONE (23:15)
[2018-09-02 23:53] LABS: ABSOLUTE EOSINOPHILS # (AUTO) 0.1 10^3/uL (0.0-0.6); ABSOLUTE MONOCYTES (AUTO) 0.7 10^3/uL (0.1-1.4); RED CELL DISTRIBUTION WIDTH 13.3 % (11.5-14.0); SEGMENTED NEUTROPHILS % (AUTO) 45.9 % (42-78); TOTAL CELLS COUNTED % (AUTO) 100 %
[2018-09-02 23:57] LABS: ABSOLUTE LYMPHOCYTES (AUTO) 2.5 10^3/uL (0.5-4.7); ABSOLUTE NEUT (AUTO) 2.8 10^3/uL (1.7-8.2); BASOPHILS % (AUTO) 0.4 % (0-2); EOSINOPHILS % (AUTO) 1.9 % (0-6); HEMATOCRIT 33.1 % (36.0-47.0); HEMOGLOBIN 10.8 g/dL (12.0-15.5); LYMPHOCYTES % (AUTO) 39.9 % (13-45); MEAN CORPUSCULAR HEMOGLOBIN 27.3 pg (27.0-33.4); MEAN CORPUSCULAR HGB CONC 32.7 g/dL (32.0-36.0); MEAN CORPUSCULAR VOLUME 84 fl (80-97); MONOCYTES % (AUTO) 11.9 % (3-13); PLATELET COUNT 394 10^3/uL (150-450); RED BLOOD COUNT 3.95 10^6/uL (3.72-5.28); WHITE BLOOD COUNT 6.2 10^3/uL (4.0-10.5)
[2018-09-03 00:16] LABS: ALANINE AMINOTRANSFERASE 20 U/L (9-52); ALBUMIN 3.5 g/dL (3.5-5.0); ALKALINE PHOSPHATASE 70 U/L (38-126); ANION GAP 10 (5-19); ASPARTATE AMINO TRANSFERASE 14 U/L (14-36); BILIRUBIN,DIRECT 0.2 mg/dL (0.0-0.4); BILIRUBIN,TOTAL 0.2 mg/dL (0.2-1.3); BLOOD UREA NITROGEN 11 mg/dL (7-20); CALCIUM 8.7 mg/dL (8.4-10.2); CARBON DIOXIDE 24 mmol/L (22-30); CHLORIDE 105 mmol/L (98-107); GLUCOSE 135 mg/dL (75-110); LIPASE 63.1 U/L (23-300); POTASSIUM 3.8 mmol/L (3.6-5.0); SODIUM 138.6 mmol/L (137-145); TOTAL PROTEIN 6.4 g/dL (6.3-8.2)
[2018-09-03] MEDS ORDERED: MORPHINE SULFATE 10 MG/ML INJ IV PRN (00:59)
--- NOTE | 2018-09-03 01:40 | RADIOLOGY REPORT (SQ) ---
EXAM DESCRIPTION: US ABDOMEN LIMITED COMPLETED DATE/TME: 09/02/2018 23:14 CLINICAL HISTORY: 27 years, Female, upper ab pain COMPARISON: None. TECHNIQUE: Limited ultrasound of the right upper quadrant LIMITATIONS: None. FINDINGS: Echogenic appearance to the liver consistent with fatty infiltrative change. Well-defined 1.8 x 1.4 x 2.2 cm echogenic focus in the liver, likely hemangioma in the absence of cancer history. No gallstones or gallbladder wall thickening. CBD measures 2.8 mm. Visualized abdominal aorta, inferior vena cava, right kidney unremarkable. No ascites IMPRESSION: Fatty infiltrative change to the liver with a well-defined echogenic focus likely reflecting hemangioma, and the right hepatic lobe copyright 2010 [employer]- All Rights Reserved
[2018-09-03] MEDS ORDERED: FAMOTIDINE 20 MG TABLET PO ONE (02:23)
[2018-09-03] MEDS ORDERED: SUCRALFATE 1 GM TABLET PO ONE (02:23)
[2018-09-03] MEDS ORDERED: METOCLOPRAMIDE HCL ORAL SOLN 10 MG/10 ML UDCUP PO ONE (02:24)
[2018-09-03] MEDS ORDERED: MAG HYDROX/AL HYDROX/SIMETH SUSP 30 ML UDCUP PO ONE (02:24)
[2018-09-03] MEDS ORDERED: LIDOCAINE 2% VISCOUS SOLN 20 ML UDCUP PO ONE (02:24)
--- NOTE | 2018-09-03 02:33 | ER Document Report ---
ED General - General Chief Complaint: Abdominal Pain Stated Complaint: ABDOMINAL PAIN Time Seen by Provider: 09/02/18 23:14 Primary Care Provider: WILBER RICKETTS DO [Primary Care Provider] - Follow up tomorrow Notes: Patient is a 27-year-old female without chronic medical problems, past surgical history of hysterectomy, presents with complaints of 1 month of intermittent generalized abdominal pain worsened by eating. Patient does arrive by EMS. States nothing was new or different regarding her pain today that prompted a visit to the emergency department.associated with nausea but no vomiting. States that is worsened by anything that she eats. Describes the pain as being a severe, intermittent, cramping, generalized discomfort somewhat worse in the upper abdomen. Has not seen her general physician regarding today's concerns. Denies a similar history in the past prior to the past 1 month. Denies asso ciated chest pain or shortness of breath. No fever or constitutional symptoms. States that she has regular bowel movements. No melena, hematochezia or hematemesis. TRAVEL OUTSIDE OF THE [place] IN LAST 30 DAYS: No - Related Data Allergies/Adverse Reactions: No Known Allergies Allergy (Verified 05/17/18 14:47) Past Medical History - General Information source: Patient - Social History Smoking Status: Never Smoker Frequency of alcohol use: None Drug Abuse: None Lives with: Spouse/Significant other Family History: Reviewed & Not Pertinent Pulmonary Medical History: Reports: Hx Asthma, Hx Bronchitis Denies: Hx Tuberculosis Neurological Medical History: Reports: Hx Migraine Renal/ Medical History: Denies: Hx Peritoneal Dialysis Past Surgical History: Reports: Hx Section, Hx Hysterectomy - Immunizations Hx Diphtheria, Pertussis, Tetanus Vaccination: Yes Review of Systems - Review of Systems Notes: Constitutional: Negative for fever. HENT: Negative for sore throat. Eyes: Negative for visual changes. Cardiovascular: Negative for chest pain. Respiratory: Negative for shortness of breath. Gastrointestinal: Positive for abdominal pain and nausea Genitourinary: Negative for dysuria. Musculoskeletal: Negative for back pain. Skin: Negative for rash. Neurological: Negative for headaches, weakness or numbness. 10 point ROS negative except as marked above and in HPI. Physical Exam - Vital signs Vitals: Temp Pulse Resp BP Pulse Ox 97.6 F 65 16 107/53 L 95 09/03/18 02:53 09/03/18 02:53 09/03/18 02:53 09/03/18 02:53 09/03/18 02:53 Interpretation: Normal Notes: PHYSICAL EXAMINATION: GENERAL: Well-appearing, well-nourished and in no acute distress. HEAD: Atraumatic, normocephalic. EYES: Pupils equal round and reactive to light, extraocular movements intact, sclera anicteric, conjunctiva are normal. ENT: nares patent, oropharynx clear without exudates. Moist mucous membranes. NECK: Normal range of motion, supple without lymphadenopathy LUNGS: Breath sounds clear to auscultation bilaterally and equal. No wheezes rales or rhonchi. HEART: Regular rate and rhythm without murmurs ABDOMEN: Soft, nontender, normoactive bowel sounds. No guarding, no rebound. No masses appreciated. EXTREMITIES: Normal range of motion, no pitting or edema. No cyanosis. NEUROLOGICAL: No focal neurological deficits. Moves all extremities spontaneously and on command. PSYCH: Normal mood, normal affect. SKIN: Warm, Dry, normal turgor, no rashes or lesions noted. Course - Re-evaluation Re-evalutation: 09/03/18 02:25 Patient presents with 4 to 6 weeks of intermittent generalized abdominal pain worsened to the upper abdomen associated with eating. Patient has no focal abdominal tenderness on examination. Right upper quadrant ultrasound does not demonstrate any evidence of acute cholecystitis or cholelithiasis. Lipase is normal. No LFT changes. Liver hemangioma incidentally noted on right upper quadrant ultrasound the patient was informed of this finding the report for fo llow-up with her primary doctor. Based on history and exam, I do not suspect ACS, pulmonary embolus, SBO, mesenteric ischemia, acute pancreatitis, biliary pathology, or an abdominal aortic dissection. At this time will discharge with return precautions and follow-up recommendations. Verbal discharge instructions given a the bedside and opportunity for questions given. Medication warnings reviewed. Patient is in agreement with this plan and has verbalized understanding of return precautions and the need for primary care follow-up in the next 24-72 hours. 09/03/18 03:48 - Vital Signs Vital signs: Temp Pulse Resp BP Pulse Ox 97.6 F 65 16 107/53 L 95 09/03/18 02:53 09/03/18 02:53 09/03/18 02:53 09/03/18 02:53 09/03/18 02:53 - Laboratory Result Diagrams: 09/02/18 22:22 09/02/18 22:22 Laboratory results interpreted by me: 09/02/18 09/02/18 22:22 22:22 Hgb 10.8 L Hct 33.1 L Glucose 135 H - Diagnostic Test Radiology reviewed: Reports reviewed Discharge - Discharge Clinical Impression: Intermittent abdominal pain, Nausea, Generalized abdominal pain, Liver hemangioma Condition: Good Disposition: HOME, SELF-CARE Additional Instructions: Your symptoms appear to be most consistent with stomach or upper intestinal irritation. Please begin taking famotidine 40 mg in the morning and 40 mg at night. Take Carafate prior to meals. You may also take medicine such as Pepto- Bismol or Tums to assist with your pain. Please return to emergency department immediately if you have worsening of your pain, shortness of breath, vomiting, become unable to exert yourself due to pain or difficulty breathing, you pass out, or have any pain that radiates into your arms, jaw, or back. Please also return if you have any additional symptoms that are concerning to you. As we discussed, if your symptoms are not improving with these therapies you need to follow-up with your doctor for a GI referral for consideration of colonoscopy and/or endoscopy. As we have discussed, the most important thing is lifestyle changes. You need to avoid smoking, sodas, tea, coffee, alcohol, spicy foods, and acidic foods such as citrus fruits, tomato based products, berries, and most fruit juices. Prescriptions: Famotidine 40 mg PO BID #60 tablet Sucralfate [Carafate 1 gm Tablet] 1 gm PO ACHS #120 tablet Forms: Return to Work Referrals: WILBER RICKETTS DO [Primary Care Provider] - Follow up tomorrow
[2018-09-03 02:55] VITALS: BP 107/53
== END 2018-09-03 03:10 | disposition home or self-care (01) ==
LOC: ER 21:45
DX: R10.84 Generalized abdominal pain (principal); R11.0 Nausea; D18.03 Hemangioma of intra-abdominal structures; J45.909 Unspecified asthma, uncomplicated; Z90.710 Acquired absence of both cervix and uterus
CPT/HCPCS: 99284; 96361; 96374; 36415; 83690; 84703; 85025; 80053; 76705; J3490; J2405; J7030

== ENCOUNTER 2018-12-16 16:38 | Emergency (ER) | payer SELFPAY ==
[2018-12-16] MEDS ORDERED: IBUPROFEN 800 MG TABLET PO ONE (17:26)
--- NOTE | 2018-12-16 17:28 | ER Document Report ---
ED Medical Screen (RME) - General Chief Complaint: Flu Symptoms Stated Complaint: FLU LIKE SYMPTOMS Time Seen by Provider: 12/16/18 17:22 Primary Care Provider: WILBER RICKETTS DO [Primary Care Provider] - Follow up as needed TRAVEL OUTSIDE OF THE [place] IN LAST 30 DAYS: No - HPI Notes: 12/16/18 17:28 Patient is a 28-year-old female no significant past medical history of asthma a nd migraines who presents complaining of fever, migraine, body ache over the past 3 days. Patient states that she does have some associated neck stiffness that has not been worsening. It is not the worst headache of her life. Patient has had headaches like this previously. Patient is able to eat and drink, but does have a decreased p.o. intake. She is urinating normally and having normal bowel movements. No vaginal discharge, odor, or bleeding. No other noted associated symptomatology. Denies any fever, head injury, changes in vision/speech/mentation/hearing, URI, sore throat, chest pain, palpitations, syncope, cough, shortness of breath, wheeze, dyspnea, abdominal pain, vomiting/diarrhea, urinary retention, dysuria, hematuria, or rash. I have treated and performed a rapid initial assessment of this patient. A comprehensive ED assessment and evaluation of the patient, analysis of test results and completion of medical decision making process will be conducted by additional ED providers. PHYSICAL EXAMINATION: GENERAL: Well-appearing, well-nourished and in no acute distress. A&Ox4. Answers questions appropriately. HEENT: no noted discharge, no orpharyngeal erythema. Neck: limited exam, but some tightness with flexion noted. LUNGS: Breath sounds clear to auscultation bilaterally and equal. No wheezes rales or rhonchi. HEART: Regular rate and rhythm without murmurs, rubs, gallops. ABDOMEN: Soft, nondistended abdomen. No guarding, no rebound. Normal bowel sounds present. No CVA tenderness bilaterally. Grossly nontender (cannot elicit thorough abd exam w/o bed, however). NEUROLOGICAL: Normal speech, normal gait. PSYCH: Normal mood, normal affect. - Related Data Allergies/Adverse Reactions: No Known Allergies Allergy (Verified 12/16/18 16:44) Past Medical History - Social History Chew tobacco use (# tins/day): No Frequency of alcohol use: None Drug Abuse: None Pulmonary Medical History: Reports: Hx Asthma, Hx Bronchitis Denies: Hx Tuberculosis Neurological Medical History: Reports: Hx Migraine Renal/ Medical History: Denies: Hx Peritoneal Dialysis Past Surgical History: Reports: Hx Section, Hx Hysterectomy - Immunizations Hx Diphtheria, Pertussis, Tetanus Vaccination: Yes Physical Exam - Vital signs Vitals: Temp Pulse Resp BP Pulse Ox 101.0 F H 147 H 18 125/59 L 96 12/16/18 16:47 12/16/18 16:47 12/16/18 16:47 12/16/18 16:47 12/16/18 16:47 Course - Vital Signs Vital signs: Temp Pulse Resp BP Pulse Ox 101.0 F H 147 H 18 125/59 L 96 12/16/18 16:47 12/16/18 16:47 12/16/18 16:47 12/16/18 16:47 12/16/18 16:47 Doctor's Discharge - Discharge Referrals: WILBER RICKETTS DO [Primary Care Provider] - Follow up as needed
[2018-12-16] MEDS ORDERED: CEFTRIAXONE 1 GM/D5W RTU 1 GM/50 ML RTUPB IV SCH (17:30)
[2018-12-16] MEDS ORDERED: ACETAMINOPHEN 325 MG TABLET PO ONE (17:55)
--- NOTE | 2018-12-16 18:03 | RADIOLOGY REPORT (SQ) ---
EXAM DESCRIPTION: CHEST 2 VIEWS COMPLETED DATE/TIME: 12/16/2018 5:52 pm REASON FOR STUDY: fever COMPARISON: 05/19/2018 TECHNIQUE: Frontal and lateral radiographic views of the chest acquired. NUMBER OF VIEWS: Two view. LIMITATIONS: None. FINDINGS: LUNGS AND PLEURA: No pneumothorax. No consolidation or pleural effusion. MEDIASTINUM AND HILAR STRUCTURES: Stable. HEART AND VASCULAR STRUCTURES: Stable. BONES: No acute findings. HARDWARE: None in the chest. OTHER: No other significant finding. IMPRESSION: NO ACUTE FINDINGS. TECHNICAL DOCUMENTATION: JOB ID: [id number] [place]-72 2010 [employer]- All Rights Reserved Reading location - IP/workstation name: [email or web address]
[2018-12-16] MEDS: NORMAL SALINE 1000 ML 1,000 ML IV PRN ×2 (18:16→19:17)
[2018-12-16 18:32] LABS: APPEARANCE,URINE CLOUDY; BILIRUBIN,URINE MODERATE (NEGATIVE); CALCIUM OXALATE CRYSTALS,URINE TOO NUMEROUS TO CNT /HPF; COLOR,URINE AMBER; GLUCOSE, URINE NEGATIVE (NEGATIVE); KETONES,URINE NEGATIVE (NEGATIVE); LEUKOCYTE ESTERASE,URINE LARGE (NEGATIVE); NITRITE,URINE NEGATIVE (NEGATIVE); PROTEIN,URINE 30 mg/dL (NEGATIVE)
[2018-12-16 18:33] LABS: ABSOLUTE EOSINOPHILS # (AUTO) 0.1 10^3/uL (0.0-0.6); ABSOLUTE LYMPHOCYTES (AUTO) 2.8 10^3/uL (0.5-4.7); ABSOLUTE MONOCYTES (AUTO) 0.5 10^3/uL (0.1-1.4); ABSOLUTE NEUT (AUTO) 2.4 10^3/uL (1.7-8.2); BASOPHILS % (AUTO) 0.8 % (0-2); EOSINOPHILS % (AUTO) 1.2 % (0-6); HEMATOCRIT 37.5 % (36.0-47.0); HEMOGLOBIN 12.6 g/dL (12.0-15.5); LYMPHOCYTES % (AUTO) 47.1 % (13-45); MEAN CORPUSCULAR HEMOGLOBIN 27.4 pg (27.0-33.4); MEAN CORPUSCULAR HGB CONC 33.7 g/dL (32.0-36.0); MEAN CORPUSCULAR VOLUME 81 fl (80-97); MONOCYTES % (AUTO) 9.3 % (3-13); PLATELET COUNT 249 10^3/uL (150-450); RED BLOOD COUNT 4.61 10^6/uL (3.72-5.28); RED CELL DISTRIBUTION WIDTH 13.3 % (11.5-14.0); SEGMENTED NEUTROPHILS % (AUTO) 41.6 % (42-78); TOTAL CELLS COUNTED % (AUTO) 100 %; URINE SPECIFIC GRAVITY 1.032; WHITE BLOOD COUNT 5.9 10^3/uL (4.0-10.5)
[2018-12-16 18:42] LABS: ALBUMIN 4.2 g/dL (3.5-5.0); ALKALINE PHOSPHATASE 97 U/L (38-126); ANION GAP 12 (5-19); ASPARTATE AMINO TRANSFERASE 35 U/L (14-36); BILIRUBIN,DIRECT 0.4 mg/dL (0.0-0.4); BILIRUBIN,TOTAL 0.7 mg/dL (0.2-1.3); BLOOD UREA NITROGEN 8 mg/dL (7-20); CALCIUM 9.3 mg/dL (8.4-10.2); CARBON DIOXIDE 21 mmol/L (22-30); CHLORIDE 103 mmol/L (98-107); GLUCOSE 130 mg/dL (75-110); POTASSIUM 3.9 mmol/L (3.6-5.0); TOTAL PROTEIN 7.6 g/dL (6.3-8.2)
--- NOTE | 2018-12-16 18:43 | ER Document Report ---
Entered by ZULMA CUMMINGS SCRIBE 12/16/18 1809 Acting as scribe for:JACOB FRANZ MD ED General - General Chief Complaint: Flu Symptoms Stated Complaint: FLU LIKE SYMPTOMS Time Seen by Provider: 12/16/18 17:22 Information source: Patient Notes: Patient is a 28-year-old female that presents to the emergency department today with complaints of a 3-day history of a migraine headache. Patient states her migraine headaches usually last for 1 day at most and it responds to Tylenol. Patient states her headache today is not responding to Tylenol. Patient states she has had no appetite and has had some nausea. Patient denies any cough or diarrhea. TRAVEL OUTSIDE OF THE [place] IN LAST 30 DAYS: No - Related Data Allergies/Adverse Reactions: No Known Allergies Allergy (Verified 12/16/18 16:44) Past Medical History - General Information source: Patient - Social History Smoking Status: Never Smoker Chew tobacco use (# tins/day): No Frequency of alcohol use: None Drug Abuse: None Family History: Reviewed & Not Pertinent Patient has suicidal ideation: No Patient has homicidal ideation: No Pulmonary Medical History: Reports: Hx Asthma, Hx Bronchitis Neurological Medical History: Reports: Hx Migraine Past Surgical History: Reports: Hx Section, Hx Hysterectomy - Immunizations Hx Diphtheria, Pertussis, Tetanus Vaccination: Yes Review of Systems - Review of Systems Constitutional: No symptoms reported EENT: No symptoms reported Cardiovascular: No symptoms reported Respiratory: denies: Cough Gastrointestinal: See HPI, Nausea. denies: Vomiting Genitourinary: No symptoms reported Female Genitourinary: No symptoms reported Musculoskeletal: No symptoms reported Skin: No symptoms reported Hematologic/Lymphatic: No symptoms reported Neurological/Psychological: See HPI, Headaches -: Yes All other systems reviewed and negative Physical Exam - Vital signs Vitals: Temp Pulse Resp BP Pulse Ox 101.0 F H 147 H 18 125/59 L 96 12/16/18 16:47 12/16/18 16:47 12/16/18 16:47 12/16/18 16:47 12/16/18 16:47 - Notes Notes: Physical Exam: General: Alert, skin is clammy and diaphoretic. HEENT: Normocephalic. Atraumatic. PERRL. Extraocular movements intact. Oropharynx clear. Neck: Supple. Non-tender. No difficulty with putting chin to chest. Posterior cervical muscles are tender with palpation. Respiratory: No respiratory distress. Clear and equal breath sounds bilaterally. Cardiovascular: Regular rate and rhythm. Abdominal: Normal Inspection. Non-tender. No distension. Normal Bowel Sounds. Back: No gross abnormalities. Extremities: Moves all four extremities. Upper extremities: Normal inspection. Normal ROM. Lower extremities: Normal inspection. No edema. Normal ROM. Neurological: Normal cognition. AAOx4. Normal speech. Psychological: Normal affect. Normal Mood. Skin: Warm. Diaphoretic. Normal color. Course - Re-evaluation Re-evalutation: 12/16/18 20:52 After 2 L of IV fluids and Motrin and Tylenol, patient feels much better. She has removed the multiple layers of clothing she was wearing initially. Her heart rate was initially about 150, it is now in the 90s. Her headache is much better. Her urinalysis suggest a urinary tract infection, they are also too numerous to count calcium oxalate crystals, she was counseled about the significance of this and why she needs to be drinking large volumes of water throughout the day every day to avoid developing kidney stones. Mother was sitting at the bedside and states that the mother has had kidney stones, so this is possibly genetic in this patient. 12/16/18 21:33 Patient is sitting up on the bed at this time smiling and states she feels much better and is ready to go home. - Vital Signs Vital signs: Temp Pulse Resp BP Pulse Ox 98.9 F 147 H 18 136/76 H 98 12/16/18 19:24 12/16/18 16:47 12/16/18 20:02 12/16/18 20:02 12/16/18 20:02 - Laboratory Result Diagrams: 12/16/18 18:05 12/16/18 18:05 Laboratory results interpreted by me: 12/16/18 12/16/18 12/16/18 18:05 18:05 18:05 Lymph % (Auto) 47.1 H Seg Neutrophils % 41.6 L Sodium 135.6 L Carbon Dioxide 21 L Glucose 130 H Urine Protein 30 H Urine Blood SMALL H Urine Bilirubin MODERATE H Urine Urobilinogen 8.0 H Ur Leukocyte Esterase LARGE H Discharge - Discharge Clinical Impression: Tension headache, Myalgia, Dehydration, Calcium oxalate crystals in urine, Tachycardia Fever Qualifiers: Fever type: unspecified Qualified Code(s): R50.9 - Fever, unspecified Urinary tract infection Qualifiers: Urinary tract infection type: site unspecified Hematuria presence: with hematuria Qualified Code(s): N39.0 - Urinary tract infection, site not specified Condition: Stable Disposition: HOME, SELF-CARE Additional Instructions: Urinary Tract Infection Your evaluation indicates that you have a urinary tract infection. This is due to germs growing in the bladder. This is a common problem. This infection usually responds quickly to antibiotics. Your antibiotic should be taken exactly as prescribed. Drink plenty of fluids -- three to four quarts a day. Occasionally, a bladder anesthetic will be prescribed to help stop the feeling of urgency until the antibiotic has a chance to clear the infection. This may cause your urine to be dark orange. Certain urine infections require a culture. If the doctor obtained a culture, the results will be back in two days. You should call to see if a change in treatment is needed. A repeat urinalysis after you finish treatment is often recommended. The physician will let you know if further testing is required. Call the doctor if you develop fever, chills, flank pain, inability to urinate, or blood in the urine. Tension Headache Your problem has been diagnosed as muscle tension headache. This very common type of headache occurs because of tightness in the muscles of the head and neck. The headache may last hours or days. The treatment of uncomplicated tension headaches is rest and pain medication. Often, the newer antiinflammatory pain medications are prescribed, as these also decrease the irritability of the painful tissues. Muscle relaxers, cold packs, or warm packs are sometimes helpful. Anti-anxiety medication or narcotics are sometimes needed temporarily, but are best avoided in the long run. Your doctor has evaluated your headache problem, and finds no evidence of a serious health problem as a cause for the headache. If your headache becomes more severe, or if new symptoms develop (such as fever, stiff neck, vomiting, or decreasing alertness) you should be re-examined by the physician. Dehydration Dehydration can result from vomiting or diarrhea, fever, or decreased intake of fluids. If severe, hospitalization and intravenous fluids may be required. Most cases are treated at home with fluids by mouth. For the next 24 hours, drink lots of clear fluids. In mild cases, this can be soda pop or sports drinks. For more severe dehydration, the doctor may recommend special fluids such as Pedialyte or Lytren. Try to get three liters (3 quarts) of fluid per day. If vomiting occurs, continue to drink the fluids frequently (every 15 to 20 minutes), but in small amounts (one or two ounces). Depending on the type of dehydration, the doctor may prescribe antinausea medicine or potassium replacements. Call the doctor or return for re-examination if you become progressively weak, vomit repeatedly, or have other new symptoms. Kidney Stone Your urine had a high concentration of calcium oxalate crystals in it. These crystals combined to form kidney stones. You should drink plenty of fluids, mostly water every day and evening to prevent developing kidney stones. Take Tylenol every 4 hours for fever and headache. Take ibuprofen 600 mg every 8 hours for your fever and headaches. Drink plenty of fluids throughout the day in the evening for the next several days. Take medication as prescribed for the urine infection. Get plenty of rest and sleep. Follow-up with your primary care provider this week if not improving. RETURN TO THE EMERGENCY ROOM IF ANY NEW OR WORSENING SYMPTOMS. Prescriptions: Cephalexin Monohydrate [Keflex 500 mg Capsule] 500 mg PO TID #15 capsule Scribe Attestation: 12/16/18 18:43 I personally performed the services described in the documentation, reviewed and edited the documentation which was dictated to the scribe in my presence, and it accurately records my words and actions. I personally performed the services described in the documentation, reviewed and edited the documentation which was dictated to the scribe in my presence, and it accurately records my words and actions.
[2018-12-16] MEDS ORDERED: ONDANSETRON HCL INJ/PF 4 MG/2 ML SDV IV ONE (20:35)
[2018-12-16] MEDS ORDERED: NORMAL SALINE 1000 ML 1,000 ML IV ONE (20:35)
[2018-12-16] MEDS ORDERED: KETOROLAC TROMETHAMINE INJ/PF 30 MG/1 ML SDV IV ONE (20:35)
[2018-12-16 21:44] VITALS: BP 120/81
== END 2018-12-16 21:48 | disposition home or self-care (01) ==
LOC: ER 16:38
DX: G44.209 Tension-type headache, unspecified, not intractable (principal); N39.0 Urinary tract infection, site not specified; R50.9 Fever, unspecified; M79.10 Myalgia, unspecified site; E86.0 Dehydration; R82.998 Other abnormal findings in urine; R00.0 Tachycardia, unspecified; R11.0 Nausea; R63.0 Anorexia; Z79.899 Other long term (current) drug therapy; J45.909 Unspecified asthma, uncomplicated
CPT/HCPCS: 36415; 87040; 87086; 84703; 85025; 80053; 81001; 86757; 83605; 71046; J1885; J2405; J7030; J0696

== ENCOUNTER 2018-12-22 13:44 | Emergency (ER) | payer SELFPAY ==
[2018-12-22] MEDS ORDERED: ONDANSETRON 4 MG TAB.RAPDIS PO ONE (14:01)
--- NOTE | 2018-12-22 14:02 | ER Document Report ---
ED Medical Screen (RME) - General Stated Complaint: FEVER/BODY PAIN Time Seen by Provider: 12/22/18 13:52 Mode of Arrival: Ambulatory Information source: Patient Notes: This 28-year-old female presents emergency department with fever body aches. Recently diagnosed with [place] spotted fever. She has been taking doxycycline since Monday. She reports her temperature was 103 last night 101 today. She did take medication. Reports she is nauseated and vomiting. I have greeted and performed a rapid initial assessment of this patient. A comprehensive ED assessment and evaluation of the patient, analysis of test results and completion of the medical decision making process will be conducted by additional ED providers. Dictation of this chart was performed using voice recognition software; therefore, there may be some unintended grammatical errors. TRAVEL OUTSIDE OF THE [place] IN LAST 30 DAYS: No - Related Data Allergies/Adverse Reactions: No Known Allergies Allergy (Verified 12/16/18 16:44) Past Medical History Pulmonary Medical History: Reports: Hx Asthma, Hx Bronchitis Denies: Hx Tuberculosis Neurological Medical History: Reports: Hx Migraine Renal/ Medical History: Denies: Hx Peritoneal Dialysis Past Surgical History: Reports: Hx Section, Hx Hysterectomy - Immunizations Hx Diphtheria, Pertussis, Tetanus Vaccination: Yes
[2018-12-22 16:06] LABS: ABSOLUTE BASOPHILS # (AUTO) 0.1 10^3/uL (0.0-0.2); ABSOLUTE EOSINOPHILS # (AUTO) 0.1 10^3/uL (0.0-0.6); ABSOLUTE LYMPHOCYTES (AUTO) 3.9 10^3/uL (0.5-4.7); ABSOLUTE MONOCYTES (AUTO) 0.5 10^3/uL (0.1-1.4); ABSOLUTE NEUT (AUTO) 2.1 10^3/uL (1.7-8.2); BASOPHILS % (AUTO) 1.1 % (0-2); EOSINOPHILS % (AUTO) 1.7 % (0-6); HEMATOCRIT 35.4 % (36.0-47.0); HEMOGLOBIN 11.7 g/dL (12.0-15.5); LYMPHOCYTES % (AUTO) 58.1 % (13-45); MEAN CORPUSCULAR HGB CONC 33.1 g/dL (32.0-36.0); MEAN CORPUSCULAR VOLUME 82 fl (80-97); MONOCYTES % (AUTO) 7.8 % (3-13); PLATELET COUNT 340 10^3/uL (150-450); RED BLOOD COUNT 4.34 10^6/uL (3.72-5.28); RED CELL DISTRIBUTION WIDTH 13.7 % (11.5-14.0); SEGMENTED NEUTROPHILS % (AUTO) 31.3 % (42-78); TOTAL CELLS COUNTED % (AUTO) 100 %; WHITE BLOOD COUNT 6.6 10^3/uL (4.0-10.5)
--- NOTE | 2018-12-22 16:14 | ER Document Report ---
ED General - General Chief Complaint: Fever Stated Complaint: FEVER/BODY PAIN Time Seen by Provider: 12/22/18 13:52 Mode of Arrival: Ambulatory TRAVEL OUTSIDE OF THE [place] IN LAST 30 DAYS: No - Related Data Allergies/Adverse Reactions: No Known Allergies Allergy (Verified 12/16/18 16:44) Past Medical History - General Information source: Patient - Social History Smoking Status: Never Smoker Frequency of alcohol use: None Drug Abuse: None Family History: Reviewed & Not Pertinent Patient has suicidal ideation: No Patient has homicidal ideation: No Pulmonary Medical History: Reports: Hx Asthma, Hx Bronchitis Denies: Hx Tuberculosis Neurological Medical History: Reports: Hx Migraine Renal/ Medical History: Denies: Hx Peritoneal Dialysis Past Surgical History: Reports: Hx Section, Hx Hysterectomy - Immunizations Hx Diphtheria, Pertussis, Tetanus Vaccination: Yes Course - Laboratory Result Diagrams: 12/22/18 16:00 12/22/18 16:00 Laboratory results interpreted by me: 12/22/18 16:00 Hgb 11.7 L Hct 35.4 L Lymph % (Auto) 58.1 H Seg Neutrophils % 31.3 L
[2018-12-22 16:24] LABS: ALBUMIN 3.7 g/dL (3.5-5.0); ALKALINE PHOSPHATASE 81 U/L (38-126); ANION GAP 7 (5-19); ASPARTATE AMINO TRANSFERASE 49 U/L (14-36); BILIRUBIN,DIRECT 0.2 mg/dL (0.0-0.4); BILIRUBIN,TOTAL 0.4 mg/dL (0.2-1.3); BLOOD UREA NITROGEN 4 mg/dL (7-20); CALCIUM 8.9 mg/dL (8.4-10.2); CARBON DIOXIDE 29 mmol/L (22-30); CHLORIDE 102 mmol/L (98-107); GLUCOSE 101 mg/dL (75-110); POTASSIUM 3.7 mmol/L (3.6-5.0); TOTAL PROTEIN 7.4 g/dL (6.3-8.2)
[2018-12-22 16:35] LABS: INTERNATIONAL RATION (INR) 1.14; PARTIAL THROMBOPLASTIN TIME 31.5 SEC (23.5-35.8); PROTHROMBIN TIME 14.6 SEC (11.4-15.4)
--- NOTE | 2018-12-22 17:09 | RADIOLOGY REPORT (SQ) ---
EXAM DESCRIPTION: CT HEAD WITHOUT COMPLETED DATE/TIME: 12/22/2018 4:55 pm REASON FOR STUDY: headache, neck pain COMPARISON: 07/28/2016 TECHNIQUE: Axial images acquired through the brain without intravenous contrast. Images reviewed wit h bone, brain and subdural windows. Images stored on PACS. All CT scanners at this facility use dose modulation, iterative reconstruction, and/or weight based d osing when appropriate to reduce radiation dose to as low as reasonably achievable (ALARA). [facility]: Dose Right [facility]: CareDose [facility]: Dose Right [facility]: Teradose 4D [facility]: Smart [email or web address] RADIATION DOSE: CT Rad equipment meets quality standard of care and radiation dose reduction techniq ues were employed. CTDIvol: 53.2 mGy. DLP: 884 mGy-cm.. LIMITATIONS: None. FINDINGS: VENTRICLES: Normal size and contour. CEREBRUM: No masses. No hemorrhage. No midline shift. Age appropriate white matter. No evidence for a cute infarction. CEREBELLUM: No masses. No hemorrhage. No alteration of density. No evidence for acute infarction. EXTRA-AXIAL SPACES: No fluid collections. ORBITS AND GLOBE: No intra- or extraconal masses. Normal contour of globe without masses. CALVARIUM: No fracture. PARANASAL SINUSES: No fluid or mucosal thickening. SOFT TISSUES: No mass or hematoma. OTHER: No other significant finding. IMPRESSION: NO ACUTE INTRACRANIAL FINDINGS. EVIDENCE OF ACUTE STROKE: NO. TECHNICAL DOCUMENTATION: JOB ID: [id number] [place]-72 Quality ID # [id number]: Final reports with documentation of one or more dose reduction techniques (e.g., Au tomated exposure control, adjustment of the mA and/or kV according to patient size, use of iterative reconstruction technique) 2010 [employer]- All Rights Reserved Reading location - IP/workstation name: [email or web address]
[2018-12-22 17:11] LABS: APPEARANCE,URINE SLIGHTLY-CLOUDY; BILIRUBIN,URINE NEGATIVE (NEGATIVE); COLOR,URINE YELLOW; GLUCOSE, URINE NEGATIVE (NEGATIVE); KETONES,URINE NEGATIVE (NEGATIVE); LEUKOCYTE ESTERASE,URINE TRACE (NEGATIVE); NITRITE,URINE NEGATIVE (NEGATIVE); PROTEIN,URINE NEGATIVE (NEGATIVE)
--- NOTE | 2018-12-22 20:52 | ER Document Report ---
ED General - General Chief Complaint: Fever Stated Complaint: FEVER/BODY PAIN Time Seen by Provider: 12/22/18 13:52 Mode of Arrival: Ambulatory Notes: RME NOTE: This 28-year-old female presents emergency department with fever body aches. Recently diagnosed with Turner spotted fever. She has been taking doxycycline since Monday. She reports her temperature was 103 last night 101 today. She did take medication. Reports she is nauseated and vomiting. MY HPI: Patient advised that she was also treated for urinary tract infection with Keflex. States she has been taking that medication as prescribed. Patient states she continues with fevers and intermittent myalgias. Patient's denying any abdominal pain, dysuria, vaginal discharge, chest pain, shortness of breath. She does admit to generalized URI symptoms. Patient has already been treated with Zofran upon my assessment. Patient voices she is no longer nauseated. TRAVEL OUTSIDE OF THE [place] IN LAST 30 DAYS: No - Related Data Allergies/Adverse Reactions: No Known Allergies Allergy (Verified 12/16/18 16:44) Past Medical History - General Information source: Patient - Social History Smoking Status: Never Smoker Frequency of alcohol use: None Drug Abuse: None Family History: Reviewed & Not Pertinent Patient has suicidal ideation: No Patient has homicidal ideation: No Pulmonary Medical History: Reports: Hx Asthma, Hx Bronchitis Denies: Hx Tuberculosis Neurological Medical History: Reports: Hx Migraine Renal/ Medical History: Denies: Hx Peritoneal Dialysis Past Surgical History: Reports: Hx Section, Hx Hysterectomy - Immunizations Hx Diphtheria, Pertussis, Tetanus Vaccination: Yes Review of Systems - Review of Systems Constitutional: Fever EENT: See HPI Cardiovascular: No symptoms reported Respiratory: See HPI Gastrointestinal: See HPI Genitourinary: No symptoms reported Female Genitourinary: No symptoms reported Musculoskeletal: No symptoms reported Skin: No symptoms reported Hematologic/Lymphatic: No symptoms reported Neurological/Psychological: See HPI Physical Exam - Vital signs Vitals: Temp Pulse Resp BP Pulse Ox 100.0 F 119 H 16 138/77 H 99 12/22/18 13:53 12/22/18 13:53 12/22/18 13:53 12/22/18 13:53 12/22/18 13:53 - Notes Notes: GENERAL: Morbidly obese, alert, interacts well. No acute distress. HEAD: Normocephalic, atraumatic. EYES: Pupils equal, round, and reactive to light. Extraocular movements intact. ENT: Oral mucosa moist, tongue midline. Nares patent, TM's intact, nonerythematous, nonbulging bilaterally. Pharynx within normal limits no palatal petechiae noted. NECK: Full range of motion. Supple. Trachea midline. No lymphadenopathy appreciated. LUNGS: Clear to auscultation bilaterally, no wheezes, rales, or rhonchi. No respiratory distress. HEART: Regular rate and rhythm. No murmur ABDOMEN: Soft, non-tender. Non-distended. Bowel sounds present in all 4 quadrants. EXTREMITIES: Moves all 4 extremities spontaneously. No edema, normal radial and dorsalis pedis pulses bilaterally. No cyanosis. BACK: no cervical, thoracic, lumbar midline tenderness. No saddle anesthesia, normal distal neurovascular exam. NEUROLOGICAL: Alert and oriented x3. Normal speech. cranial nerves II through XII grossly intact. PSYCH: Normal affect, normal mood. SKIN: Warm, dry, normal turgor. No rashes or lesions noted. Course - Re-evaluation Re-evalutation: 12/22/18 20:57 Laboratory 12/22/18 12/22/18 12/22/18 14:20 16:00 16:00 WBC 6.6 RBC 4.34 Hgb 11.7 L Hct 35.4 L MCV 82 MCH 27.0 MCHC 33.1 RDW 13.7 Plt Count 340 Lymph % (Auto) 58.1 H Vernon % (Auto) 7.8 Eos % (Auto) 1.7 Baso % (Auto) 1.1 Absolute Neuts (auto) 2.1 Absolute Lymphs (auto) 3.9 Absolute Monos (auto) 0.5 Absolute Eos (auto) 0.1 Absolute Basos (auto) 0.1 Seg Neutrophils % 31.3 L PT INR APTT Sodium 138.3 Potassium 3.7 Chloride 102 Carbon Dioxide 29 Anion Gap 7 BUN 4 L Creatinine 0.68 Est GFR ( Amer) > 60 Est GFR (MDRD) Non-Af > 60 Glucose 101 Calcium 8.9 Total Bilirubin 0.4 Direct Bilirubin 0.2 Neonat Total Bilirubin Not Reportable Neonat Direct Bilirubin Not Reportable Neonat Indirect Bili Not Reportable AST 49 H ALT 45 Alkaline Phosphatase 81 Total Protein 7.4 Albumin 3.7 Urine Color YELLOW Urine Appearance SLIGHTLY-CLOUDY Urine pH 6.0 Ur Specific Farber 1.010 Urine Protein NEGATIVE Urine Glucose (UA) NEGATIVE Urine Ketones NEGATIVE Urine Blood SMALL H Urine Nitrite NEGATIVE Urine Bilirubin NEGATIVE Urine Urobilinogen 2.0 H Ur Leukocyte Esterase TRACE H Urine WBC (Auto) 8 Urine RBC (Auto) 1 Squamous Epi Cells Auto 11 Urine Mucus (Auto) RARE Urine Ascorbic Acid NEGATIVE 12/22/18 16:00 WBC RBC Hgb Hct MCV MCH MCHC RDW Plt Count Lymph % (Auto) Vernon % (Auto) Eos % (Auto) Baso % (Auto) Absolute Neuts (auto) Absolute Lymphs (auto) Absolute Monos (auto) Absolute Eos (auto) Absolute Basos (auto) Seg Neutrophils % PT 14.6 INR 1.14 APTT 31.5 Sodium Potassium Chloride Carbon Dioxide Anion Gap BUN Creatinine Est GFR ( Amer) Est GFR (MDRD) Non-Af Glucose Calcium Total Bilirubin Direct Bilirubin Neonat Total Bilirubin Neonat Direct Bilirubin Neonat Indirect Bili AST ALT Alkaline Phosphatase Total Protein Albumin Urine Color Urine Appearance Urine pH Ur Specific Farber Urine Protein Urine Glucose (UA) Urine Ketones Urine Blood Urine Nitrite Urine Bilirubin Urine Urobilinogen Ur Leukocyte Esterase Urine WBC (Auto) Urine RBC (Auto) Squamous Epi Cells Auto Urine Mucus (Auto) Urine Ascorbic Acid Head CT 12/22/18 16:26 IMPRESSION: NO ACUTE INTRACRANIAL FINDINGS. EVIDENCE OF ACUTE STROKE: NO. Labs and CT imaging ordered by E provider. No signs of leukocytosis, no signs of continued urinary tract infection. Patient did present to the emergency department tachycardic yet afebrile. Upon discharge patient is noted to be tachycardic and now febrile. Treated appropriately. Nursing staff brings my attention they had a very hard time getting IV access. I discussed with patient giving her a fluid bolus. She wishes to decline at this time she does not want continued IV attempts. Patient does appear well-hydrated, nontoxic. I do feel as though antipyretics will bring the patient's temperature and inevitably heart rate down. - Vital Signs Vital signs: Temp Pulse Resp BP Pulse Ox 102.7 F H 111 H 16 128/59 H 95 12/22/18 20:57 12/22/18 20:57 12/22/18 20:57 12/22/18 20:57 12/22/18 20:57 - Laboratory Result Diagrams: 12/22/18 16:00 12/22/18 16:00 Laboratory results interpreted by me: 12/22/18 12/22/18 12/22/18 14:20 16:00 16:00 Hgb 11.7 L Hct 35.4 L Lymph % (Auto) 58.1 H Seg Neutrophils % 31.3 L BUN 4 L AST 49 H Urine Blood SMALL H Urine Urobilinogen 2.0 H Ur Leukocyte Esterase TRACE H Discharge - Discharge Clinical Impression: Tachycardia Nausea & vomiting Qualifiers: Vomiting type: unspecified Vomiting Intractability: non-intractable Qualified Code(s): R11.2 - Nausea with vomiting, unspecified Fever Qualifiers: Fever type: unspecified Qualified Code(s): R50.9 - Fever, unspecified Condition: Stable Disposition: HOME, SELF-CARE Instructions: Fever ([facility]), Vomiting ([facility]), Antinausea Medication ([facility]) Additional Instructions: As we discussed you have been seen and treated in the emergency department for generalized fever, malaise, Turner spotted fever. Please make sure you continue to take antibiotics as prescribed. Please also make sure you continue to take Tylenol and Motrin for generalized fevers. Please stay well-hydrated. Please make sure he follow-up with a primary care provider in the next 24 to 48 hours. Phone numbers for [place] [facility] will be provided. Please return to the emergency room for any concerns. Prescriptions: Ondansetron HCl [Zofran 8 mg Tablet] 8 mg PO Q6 PRN #15 tablet PRN Reason: Referrals: [facility] [Provider Group] - Follow up as needed [facility] [Provider Group] - Follow up as needed
[2018-12-22] MEDS ORDERED: IBUPROFEN 800 MG TABLET PO ONE (20:58)
[2018-12-22 23:25] VITALS: BP 121/60
== END 2018-12-22 23:25 | disposition home or self-care (01) ==
LOC: ER 13:44
DX: A77.0 Spotted fever due to Rickettsia rickettsii (principal); N39.0 Urinary tract infection, site not specified; R11.2 Nausea with vomiting, unspecified; R00.0 Tachycardia, unspecified; M79.10 Myalgia, unspecified site; J45.909 Unspecified asthma, uncomplicated; E66.01 Morbid (severe) obesity due to excess calories
CPT/HCPCS: 36415; 85025; 85610; 85730; 80053; 81001; 70450; S0119

== ENCOUNTER → 2019-03-12 | Outpatient (CLI) | payer MEDICAID ==
--- NOTE | 2019-03-12 14:54 | RADIOLOGY REPORT (SQ) ---
EXAM DESCRIPTION: CHEST PA/LATERAL COMPLETED DATE/TIME: 03/12/2019 2:22 pm REASON FOR STUDY: COUGH COMPARISON: 12/16/2018 EXAM PARAMETERS: NUMBER OF VIEWS: two views TECHNIQUE: Digital Frontal and Lateral radiographic views of the chest acquired. RADIATION DOSE: NA LIMITATIONS: none FINDINGS: LUNGS AND PLEURA: No opacities, masses or pneumothorax. No pleural effusion. MEDIASTINUM AND HILAR STRUCTURES: No masses or contour abnormalities. HEART AND VASCULAR STRUCTURES: Heart normal size. No evidence for failure. BONES: No acute findings. HARDWARE: None in the chest. OTHER: No other significant finding. IMPRESSION: NO SIGNIFICANT RADIOGRAPHIC FINDING IN THE CHEST. TECHNICAL DOCUMENTATION: JOB ID: [id number] [employer]- All Rights Reserved Reading location - IP/workstation name: [email or web address]
== END ==
LOC: OD 14:13
PROVIDERS: ATTEND Nurse Practitioner Family
DX: R05 Cough (principal)
CPT/HCPCS: 71046

== ENCOUNTER 2019-10-28 21:11 | Emergency (ER) | payer MEDICAID ==
--- NOTE | 2019-10-28 22:41 | ER Document Report ---
ED Medical Screen (RME) - General Chief Complaint: Chest Pain Stated Complaint: RIGHT SIDE CHEST PAIN/PAIN IN RIGHT ARM Time Seen by Provider: 10/28/19 22:38 Primary Care Provider: NAE GIBSON NP [Primary Care Provider] - Follow up as needed Information source: Patient Notes: Patient is a 28-year-old female comes emergency room with onset of anterior chest pain radiating down to the right arm. Patient states it started about 2 days ago and is been off and on. When it hits her she notices that feels like her heart is racing and she becomes diaphoretic. She is also experienced some mild shortness of breath with this. Patient no longer smokes has been stopped for quite a while. Family history is only pertinent for mother having congestive heart failure. Patient denies taking any medications. And she has had a hysterectomy in the past. Physical examination. Patient is a well-nourished well-developed obese 28-year-old female who on exam tonight is in no apparent distress. Cardiac: She displays a regular rate and rhythm on exam today with an EKG that it shows the same. Lungs: Auscultation patient's lungs show she has bilateral breath sounds they are increased throughout no rhonchi rales or wheeze noted. Abdomen: Bowel sounds present all 4 quads nontender to palpate. I have greeted and performed a rapid initial assessment of this patient. A comprehensive ED assessment and evaluation of the patient, analysis of test results and completion of the medical decision making process will be conducted by additional ED providers. Dictation of this chart was performed using voice recognition software; therefore, there may be some unintended grammatical errors. TRAVEL OUTSIDE OF THE [place] IN LAST 30 DAYS: No - Related Data Allergies/Adverse Reactions: No Known Allergies Allergy (Verified 12/16/18 16:44) Home Medications: allergy med, zoloft Past Medical History Pulmonary Medical History: Reports: Hx Asthma, Hx Bronchitis Denies: Hx Tuberculosis Neurological Medical History: Reports: Hx Migraine Renal/ Medical History: Denies: Hx Peritoneal Dialysis Past Surgical History: Reports: Hx Section, Hx Hysterectomy - Immunizations Hx Diphtheria, Pertussis, Tetanus Vaccination: Yes Physical Exam - Vital signs Vitals: Temp Pulse Resp BP Pulse Ox 98.4 F 73 20 140/86 H 99 10/28/19 21:45 10/28/19 21:45 10/28/19 21:45 10/28/19 21:45 10/28/19 21:45 Course - Vital Signs Vital signs: Temp Pulse Resp BP Pulse Ox 98.4 F 73 20 140/86 H 99 10/28/19 21:45 10/28/19 21:45 10/28/19 21:45 10/28/19 21:45 10/28/19 21:45 Doctor's Discharge - Discharge Referrals: NAE GIBSON NP [Primary Care Provider] - Follow up as needed
[2019-10-28] MEDS ORDERED: ASPIRIN 81 MG TABLET, CHEWABLE PO ONE (22:42)
[2019-10-28 23:10] LABS: HEMATOCRIT 35.1 % (36.0-47.0); HEMOGLOBIN 11.6 g/dL (12.0-15.5); MEAN CORPUSCULAR HGB CONC 33.1 g/dL (32.0-36.0); MEAN CORPUSCULAR VOLUME 85 fl (80-97); RED BLOOD COUNT 4.16 10^6/uL (3.72-5.28); RED CELL DISTRIBUTION WIDTH 13.3 % (11.5-14.0); WHITE BLOOD COUNT 10.5 10^3/uL (4.0-10.5)
[2019-10-28 23:25] LABS: APPEARANCE,URINE SLIGHTLY-CLOUDY; BILIRUBIN,URINE NEGATIVE (NEGATIVE); COLOR,URINE YELLOW; GLUCOSE, URINE NEGATIVE (NEGATIVE); KETONES,URINE NEGATIVE (NEGATIVE); LEUKOCYTE ESTERASE,URINE MODERATE (NEGATIVE); NITRITE,URINE NEGATIVE (NEGATIVE); PROTEIN,URINE NEGATIVE (NEGATIVE); URINE SPECIFIC GRAVITY 1.024; UROBILINOGEN,URINE NEGATIVE mg/dL (<2.0)
[2019-10-28 23:27] LABS: ALBUMIN 4.4 g/dL (3.5-5.0); ALKALINE PHOSPHATASE 79 U/L (38-126); ANION GAP 6 (5-19); ASPARTATE AMINO TRANSFERASE 20 U/L (14-36); BILIRUBIN,TOTAL 0.3 mg/dL (0.2-1.3); BLOOD UREA NITROGEN 7 mg/dL (7-20); CALCIUM 9.5 mg/dL (8.4-10.2); CARBON DIOXIDE 26 mmol/L (22-30); CHLORIDE 104 mmol/L (98-107); GLUCOSE 106 mg/dL (75-110); POTASSIUM 4.4 mmol/L (3.6-5.0)
[2019-10-28 23:36] LABS: URINE AMPHETAMINES SCREEN NEGATIVE; URINE BARBITURATES SCREEN NEGATIVE; URINE BENZODIAZEPINES SCREEN NEGATIVE; URINE COCAINE SCREEN NEGATIVE; URINE MARIJUANA (THC) SCREEN NEGATIVE; URINE METHADONE SCREEN NEGATIVE; URINE PHENCYCLIDINE SCREEN NEGATIVE
[2019-10-28 23:52] LABS: ABSOLUTE LYMPHOCYTES# (MANUAL) 8.6 10^3/uL (0.5-4.7); ABSOLUTE MONOCYTES # (MANUAL) 0.1 10^3/uL (0.1-1.4); BASOPHILS % (MANUAL) 0 % (0-2); EOSINOPHILS % (MANUAL) 1 % (0-6); METAMYELOCYTES % (MANUAL) 1 % (0-1); MONOCYTES % (MANUAL) 1 % (3-13); SEGMENTED NEUTROPHILS % (MAN) 15 % (42-78); TOTAL CELLS COUNTED 100
[2019-10-28 23:54] LABS: PLATELET COMMENT ADEQUATE
[2019-10-28 23:55] LABS: LYMPHOCYTES % (MANUAL) 70 % (13-45); PLATELET CLUMPS PRESENT; PLATELET COUNT 428 10^3/uL (150-450)
--- NOTE | 2019-10-29 00:25 | RADIOLOGY REPORT (SQ) ---
CLINICAL INDICATION: chest pain. TECHNIQUE: A single portable AP view was obtained of the chest at 2357 hours. COMPARISON: December 11, 2018. FINDINGS: The cardiomediastinal silhouette is normal. The lungs demonstrate mild diffuse interstitial prominence, similar to prior. No focal airspace consolidation. No evidence of effusion or pneumothorax. The visualized bones are unremarkable. IMPRESSION: Mild diffuse interstitial prominence. No focal airspace consolidation..
--- NOTE | 2019-10-29 01:03 | ER Document Report ---
ED General - General Chief Complaint: Chest Pain Stated Complaint: RIGHT SIDE CHEST PAIN/PAIN IN RIGHT ARM Time Seen by Provider: 10/28/19 22:38 Primary Care Provider: NAE GIBSON NP [Primary Care Provider] - Follow up tomorrow Mode of Arrival: Ambulatory Information source: Patient Notes: 28-year-old female presented to ED for complaint of anterior right-sided chest pain that sometimes goes down her right arm. She states it is intermittent for the last 2 days. She states it comes and goes. She does have tenderness to palpation to the right side of her chest. She states sometimes she does get mild shortness of breath with this. She has been seen for the similar symptoms multiple times in the past. EKG was negative for any acute changes. Chest x-ray is negative for any acute changes. Labs have been discussed with patient and written report of labs given to patient to follow-up with her primary care doctor. She is not on any hormonal treatment she has not had any recent surgeries she does not have any cardiac history her heart score is 1 due to obesity she has had a hysterectomy with no hormonal replacement. She is alert oriented respirations regular nonlabored speaking in full sentences. TRAVEL OUTSIDE OF THE [place] IN LAST 30 DAYS: No - HPI Onset: Other - 2 days Onset/Duration: Intermittent Quality of pain: Other - Sore tender Severity: Mild Pain Level: 1 Associated symptoms: Chest pain - Small pain Exacerbated by: Denies Relieved by: Denies Similar symptoms previously: Yes Recently seen / treated by doctor: No - Related Data Allergies/Adverse Reactions: No Known Allergies Allergy (Verified 12/16/18 16:44) Home Medications: allergy med, zoloft Past Medical History - General Information source: Patient - Social History Smoking Status: Former Smoker Frequency of alcohol use: None Drug Abuse: None Lives with: Family Family History: Reviewed & Not Pertinent Patient has suicidal ideation: No Patient has homicidal ideation: No - Past Medical History Cardiac Medical History: Reports: None Pulmonary Medical History: Reports: Hx Asthma, Hx Bronchitis Denies: Hx Tuberculosis EENT Medical History: Reports: None Neurological Medical History: Reports: Hx Migraine Endocrine Medical History: Reports: None Renal/ Medical History: Reports: None Malignancy Medical History: Reports: None GI Medical History: Reports: None Musculoskeletal Medical History: Reports None Skin Medical History: Reports None Psychiatric Medical History: Reports: None Traumatic Medical History: Reports: None Infectious Medical History: Reports: None Past Surgical History: Reports: Hx Section, Hx Hysterectomy - Immunizations Hx Diphtheria, Pertussis, Tetanus Vaccination: Yes Review of Systems - Review of Systems Constitutional: No symptoms reported EENT: No symptoms reported Cardiovascular: Chest pain - Chest wall Respiratory: No symptoms reported Gastrointestinal: No symptoms reported Genitourinary: No symptoms reported Female Genitourinary: No symptoms reported Musculoskeletal: No symptoms reported Skin: No symptoms reported Hematologic/Lymphatic: No symptoms reported Neurological/Psychological: No symptoms reported -: Yes All other systems reviewed and negative Physical Exam - Vital signs Vitals: Temp Pulse Resp BP Pulse Ox 98.4 F 73 20 140/86 H 99 10/28/19 21:45 10/28/19 21:45 10/28/19 21:45 10/28/19 21:45 10/28/19 21:45 Interpretation: Normal - General General appearance: Appears well, Alert - HEENT Head: Normocephalic, Atraumatic Eyes: Normal Pupils: PERRL - Respiratory Respiratory status: No respiratory distress Chest status: Nontender Breath sounds: Normal Chest palpation: Normal - Cardiovascular Rhythm: Regular Heart sounds: Normal auscultation Murmur: No - Abdominal Inspection: Normal Distension: No distension Bowel sounds: Normal Tenderness: Nontender Organomegaly: No organomegaly - Back Back: Normal, Nontender - Extremities General upper extremity: Normal inspection, Nontender, Normal color, Normal ROM, Normal temperature General lower extremity: Normal inspection, Nontender, Normal color, Normal ROM, Normal temperature, Normal weight bearing. No: Shakira's sign - Neurological Neuro grossly intact: Yes Cognition: Normal Orientation: AAOx4 Aydin Coma Scale Eye Opening: Spontaneous Aydin Coma Scale Verbal: Oriented Aydin Coma Scale Motor: Obeys Commands Aydin Coma Scale Total: 15 Speech: Normal Motor strength normal: LUE, RUE, LLE, RLE Sensory: Normal - Psychological Associated symptoms: Normal affect, Normal mood - Skin Skin Temperature: Warm Skin Moisture: Dry Skin Color: Normal Course - Re-evaluation Re-evalutation: 10/30/19 01:43 Patient had a heart score of 1. Vital signs are stable patient was discharged home as this was chest wall tenderness that she had had multiple times in the past. - Vital Signs Vital signs: Temp Pulse Resp BP Pulse Ox 98.1 F 70 16 140/86 H 99 07/28/20 01:10 10/29/19 01:10 10/29/19 01:10 10/29/19 01:10 10/29/19 01:10 - Laboratory Result Diagrams: 10/28/19 22:55 10/28/19 22:55 Laboratory results interpreted by me: 10/28/19 10/28/19 10/28/19 22:55 22:55 22:55 Hgb 11.6 L Hct 35.1 L Seg Neuts % (Manual) 15 L Lymphocytes % (Manual) 70 H Monocytes % (Manual) 1 L Abs Lymphs (Manual) 8.6 H Sodium 135.7 L Ur Leukocyte Esterase MODERATE H - Diagnostic Test Radiology reviewed: Image reviewed, Reports reviewed - EKG Interpretation by Me When compared to previous EKG there are: No significant change Discharge - Discharge Clinical Impression: Right-sided chest wall pain Condition: Stable Disposition: HOME, SELF-CARE Additional Instructions: CHEST PAIN OF UNCLEAR CAUSE: The exact cause of your chest pain isn't clear. Fortunately, there is no evidence of a dangerous medical condition. Further testing may be required to find the source of the pain. Most often, we find that this pain is coming from the chest wall -- the muscles or rib joints in the chest. But chest pain can come from the lung and lung lining, the esophagus, the heart valves or heart lining, and even the stomach or gallbladder. Rest. Eat lightly until the pain is gone. We may prescribe medicine for pain and inflammation. You should call the physician immediately if the pain radiates to the shoulder, jaw or arms; if you start to run a fever or develop a cough; or if you develop shortness of breath, or other new or alarming symptoms. NORMAL EXAM AND WORKUP: At this time, your examination and workup show no significant abnormality. No significant abnormal physical findings were noted. All laboratory, EKG, and imaging (x-ray, CT scans, ultrasound) studies that were ordered show no significant abnormality. Although your examination and all studies that were ordered showed no significant abnormal finding, there are no examinations and no studies that are 100% accurate. There is always the possibility that some abnormality could exist and not be detected with physical examination or within the limits and capabilities of laboratory and other studies. You should return or follow up as you were instructed on your visit today for further evaluation if your symptoms do not resolve. CHEST WALL PAIN: Your chest pain may be coming from the chest wall. This is often caused by straining the muscles or joints in the chest during physical activity, direct trauma, coughing, or vigorous vomiting. Persons with arthritis are especially prone to this type of pain, due to inflammation of the cartilage joints near the breast bone. Occasionally, no cause can be found. Rest from strenuous physical activity. This kind of chest pain is usually made worse by movement of the chest. Depending on the symptoms, we may prescribe medicine for pain, muscle relaxation, and antiinflammatory effects. If the pain is new, and seems to be due to muscle strain, cold packs can help. Otherwise, apply gentle warmth to the painful area for 15 minutes every hour or two. You should call contact the doctor immediately if things change. Further evaluation is needed if you develop a fever or cough, if the nature of the pain changes, or if you become short of breath. Anti-Inflammatory Medication You have received a prescription for an antiinflammatory agent. This is an excellent, safe drug for pain control. In addition, it has potent antiinflammatory effects which are beneficial, especially in the treatment of injuries, arthritis, or tendonitis. It's best to take this medicine with food. Persons with ulcer disease or allergy to aspirin should notify their physician of this before taking this drug. Take the medication exactly as prescribed. Don't take additional doses unless instructed to do so by your doctor. If you develop wheezing, shortness of breath, hives, faintness, stomach pain, vomiting, or dark black stools, return for re-evaluation at once. FOLLOW-UP CARE: If you have been referred to a physician for follow-up care, call the physicians office for an appointment as you were instructed or within the next two days. If you experience worsening or a significant change in your symptoms, notify the physician immediately or return to the Emergency Department at any time for re-evaluation. Prescriptions: Naproxen 500 mg PO BID #10 tablet Forms: Elevated Blood Pressure Referrals: NAE GIBSON NP [Primary Care Provider] - Follow up tomorrow
[2019-10-29 06:01] VITALS: BP 140/86
--- NOTE | 2019-10-29 10:13 | EKG REPORT ---
SEVERITY:- BORDERLINE ECG - SINUS RHYTHM BORDERLINE T ABNORMALITIES, DIFFUSE LEADS : Confirmed by: Cristy Corona MD 29-Oct-2019 10:13:07
[2019-10-29 13:16] LABS: PATH REVIEW PATHOLOGIST REVIEWED
== END 2019-10-29 01:10 | disposition home or self-care (01) ==
LOC: ER 21:11
DX: R07.89 Other chest pain (principal); M79.601 Pain in right arm
CPT/HCPCS: 36415; 71045; 80053; 80307; 81001; 84484; 85025; 87086; 93005; 93010; 99285

== ENCOUNTER → 2019-10-30 | Outpatient (CLI) | payer MEDICAID | LOC: OD 13:57 | PROVIDERS: ATTEND Nurse Practitioner Family | DX: R07.9 Chest pain, unspecified (principal); R93.89 Abnormal findings on diagnostic imaging of other specified body structures | CPT/HCPCS: 36415; 85652; 86140 ==

== ENCOUNTER → 2019-11-12 | Outpatient (CLI) | payer MEDICAID ==
--- NOTE | 2019-11-12 13:19 | RADIOLOGY REPORT (SQ) ---
EXAM DESCRIPTION: CHEST PA/LATERAL IMAGES COMPLETED DATE/TIME: 11/12/2019 12:30 pm REASON FOR STUDY: RT SIDED CHEST WALL PAIN COMPARISON: 10/28/2019 EXAM PARAMETERS: NUMBER OF VIEWS: two views TECHNIQUE: Digital Frontal and Lateral radiographic views of the chest acquired. RADIATION DOSE: NA LIMITATIONS: none FINDINGS: LUNGS AND PLEURA: No opacities, masses or pneumothorax. No pleural effusion. MEDIASTINUM AND HILAR STRUCTURES: No masses or contour abnormalities. HEART AND VASCULAR STRUCTURES: Heart normal size. No evidence for failure. BONES: No acute findings. HARDWARE: None in the chest. OTHER: No other significant finding. IMPRESSION: NO SIGNIFICANT RADIOGRAPHIC FINDING IN THE CHEST. TECHNICAL DOCUMENTATION: JOB ID: [id number] [employer]- All Rights Reserved Reading location - IP/workstation name: [email or web address]
== END ==
LOC: OD 12:20
PROVIDERS: ATTEND Nurse Practitioner Family
DX: R07.89 Other chest pain (principal)
CPT/HCPCS: 71046